=== PATIENT | female | born 1945 | race African-American/Black ===

== ENCOUNTER 2016-11-08 15:17 | Inpatient (IN) | payer MEDICARE, MEDICAID ==
[~2016-11-08] VITALS: Ht 160 cm; Wt 97.5 kg
[~2016-11-08 15:17] MED LIST: ACET1TAB46 PO; ALPR0.254 PO; AMLO10TA2 PO; AMLO10TA4 PO; CLON0.1T PO; HYDR-2666 PO; HYDR-971 PO; HYDR25TA9 PO; LORA10TA3 PO; METH750T2 PO; METOPROLOL PO; OMEP40CA5 PO; OXYM15MI4 NS; POTA10TA10 PO; SUCR1ORA2 PO
--- NOTE | 2016-11-08 16:25 | RAD ---
Exam performed: One view chest. Indication: SOB, r/o acute process Date of Service: 11/08/2016 5:38 PM Comparison: 01/16/16. Single AP upright portable view chest findings: Cardiomediastinal silhouette is within limits of normal. No acute infiltrates, effusion or pneumothorax is detected. Degenerative changes seen shoulder joints. Impression: No acute cardiopulmonary process is detected.
--- NOTE | 2016-11-08 16:50 | RAD ---
Exam performed: CT scan of the head without contrast. Date of Service: 11/08/16. Comparison: None available. Clinical History: Left upper extremity weakness, history of hypertension. Technique: Helical acquisitions are obtained from the foramen magnum to the vertex without intravenous administration of contrast. Findings: The ventricles are midline without evidence of dilatation. Normal fraser-white differentiation is maintained. There is no extra axial fluid collection, intraparenchymal hemorrhage or mass lesion. The visualized portions of the orbits, paranasal sinuses and the mastoid air cells appear clear. The calvarium is intact. Impression: 1. No acute intracranial process detected. PQRS Compliance Statement: One or more of the following individualized dose reduction techniques were utilized for this examination: 1. Automated exposure control 2. Adjustment of the mA and/or kV according to patient size 3. Use of iterative reconstruction technique
[2016-11-08 17:25] LABS: BASO # 0.1 x10^3/uL (0.0-0.2); BASO % 1 % (0-3); EOS % 2 % (0-3); HEMATOCRIT 36.5 % (36.0-47.0); HEMOGLOBIN 11.9 g/dL (12.0-15.5); LYMPH % 25 % (24-48); MEAN CORPUSCULAR HEMOGLOBIN 27 pg (25-35); MEAN CORPUSCULAR HGB CONC 33 g/dL (31-37); MEAN CORPUSCULAR VOLUME 83 fL (79-100); MONO % 7 % (0-9); NEUT % 66 % (31-73); PLATELET COUNT 223 x10^3/uL (140-400); RED BLOOD COUNT 4.43 x10^6/uL (3.50-5.40); RED CELL DISTRIBUTION WIDTH 14.6 % (11.5-14.5); WHITE BLOOD COUNT 8.2 x10^3/uL (4.0-11.0)
[2016-11-08 17:26] LABS: CALCIUM 8.9 mg/dL (8.5-10.1); GFR 66.5
[2016-11-08 17:30] LABS: PROTHROMBIN TIME PATIENT 21.8 SEC (11.7-14.0)
[2016-11-08 17:32] LABS: ALBUMIN 3.7 g/dL (3.4-5.0); ALBUMIN/GLOBULIN RATIO 0.9 (1.0-1.7); TOTAL BILIRUBIN 0.5 mg/dL (0.2-1.0); TOTAL PROTEIN 7.7 g/dL (6.4-8.2)
[2016-11-08 17:35] LABS: BILIRUBIN,URINE NEGATIVE (NEG); GLUCOSE,URINE NEGATIVE (NEG); NITRITE,URINE NEGATIVE (NEG); PROTEIN,URINE NEGATIVE (NEG-TRACE); UROBILINOGEN,URINE 0.2 mg/dL (0.2 mg/dL)
[2016-11-08 18:26] LABS: RBC,URINE 0 /HPF (0-2)
[2016-11-08 18:27] LABS: SQUAMOUS EPITHELIAL CELL,UR FEW /LPF
--- NOTE | 2016-11-08 18:31 | PHYS DOC ---
Past Medical History Past Medical History: Arthritis, DVT, GERD, Hypertension Additional Past Medical Histor: seasonal allergies, pulmonary embolism Past Surgical History: Cholecystectomy, , Tubal ligation Alcohol Use: None Drug Use: None Adult General Chief Complaint Chief Complaint: WEAKNESS/GENERALIZED HPI HPI Patient is a 71 year old female who presents with left upper extremity weakness. Patient reports since last night she has felt some weakness in her left arm and hand. She also had a little numbness in left hand this morning, however this has resolved. She was having a little left upper extremity pain last night, however this is eased off today. She denies any chest discomfort. She does report slight shortness of breath. She has not taken anything for symptoms at home. No other acute complaints. Review of Systems Review of Systems Constitutional: Denies fever or chills Eyes: Denies change in visual acuity or eye pain HENT: Denies nasal congestion or sore throat Respiratory: Slight SOB. Denies cough Cardiovascular: Denies chest pain GI: Denies abdominal pain, nausea, vomiting, bloody stools or diarrhea : Denies dysuria or hematuria Musculoskeletal: Denies back pain or joint pain Integument: Denies rash or skin lesions Neurologic: LUE weakness, numbness in L hand (numbness now resolved). Denies headache.No other focal weakness or sensory changes Allergies Allergies Allergies Coded Allergies Type Severity Reaction Last Updated Verified Sulfa (Sulfonamide Antibiotics) Allergy Intermediate Rash 07/08/14 Yes cephalexin Adverse Reaction Intermediate Nausea and Vomiting 07/08/14 Yes metoclopramide Adverse Reaction Intermediate Anxiety, pt reports that it makes her restless 07/08/14 Yes promethazine Adverse Reaction Intermediate Anxiety, pt reports that phenergan cause numbness 07/08/14 Yes Physical Exam Physical Exam Constitutional: Well developed, well nourished, no acute distress, non-toxic appearance HENT: Normocephalic, atraumatic, bilateral external ears normal Eyes: PERRL, EOMI, conjunctiva normal, no discharge Neck: Normal range of motion, no stridor Cardiovascular: Heart rate normal, regular rhythm, no murmur Lungs & Thorax: Bilateral breath sounds clear to auscultation Abdomen: Bowel sounds normal, soft, non-distended, no TTP Skin: Warm, dry, no erythema, no rash Extremities: No obvious deformity, no edema. 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5% (36.0-47.0) Mean Corpuscular Volume 83fL (79-100) Mean Corpuscular Hemoglobin 27pg (25-35) Mean Corpuscular Hemoglobin Concent 33g/dL (31-37) Red Cell Distribution Width 14.6% (11.5-14.5) H Platelet Count 223x10^3/uL (140-400) Neutrophils (%) (Auto) 66% (31-73) Lymphocytes (%) (Auto) 25% (24-48) Monocytes (%) (Auto) 7% (0-9) Eosinophils (%) (Auto) 2% (0-3) Basophils (%) (Auto) 1% (0-3) Neutrophils # (Auto) 5.4x10^3uL (1.8-7.7) Lymphocytes # (Auto) 2.0x10^3/uL (1.0-4.8) Monocytes # (Auto) 0.5x10^3/uL (0.0-1.1) Eosinophils # (Auto) 0.2x10^3/uL (0.0-0.7) Basophils # (Auto) 0.1x10^3/uL (0.0-0.2) Prothrombin Time 21.8SEC (11.7-14.0) H Prothrombin Time INR 2.0 (0.8-1.1) H Sodium Level 145mmol/L (136-145) Potassium Level 4.0mmol/L (3.5-5.1) Chloride Level 107mmol/L (98-107) Carbon Dioxide Level 28mmol/L (21-32) Anion Gap 10 (6-14) Blood Urea Nitrogen 17mg/dL (7-20) Creatinine 1.0mg/dL (0.6-1.0) Estimated GFR (Cockcroft-Gault) 66.5 BUN/Creatinine Ratio 17 (6-20) Glucose Level 96mg/dL (70-99) Calcium Level 8.9mg/dL (8.5-10.1) Total Bilirubin 0.5mg/dL (0.2-1.0) Aspartate Amino Transferase (AST) 24U/L (15-37) Alanine Aminotransferase (ALT) 27U/L (14-59) Alkaline Phosphatase 98U/L (46-116) Troponin I Quantitative < 0.017ng/mL (0.000-0.055) Total Protein 7.7g/dL (6.4-8.2) Albumin 3.7g/dL (3.4-5.0) Albumin/Globulin Ratio 0.9 (1.0-1.7) L Urine Collection Type Unknown Urine Color Yellow Urine Clarity Clear Urine pH 7.0 Urine Specific [place] 1.010 Urine Protein Negativemg/dL (NEG-TRACE) Urine Glucose (UA) Negativemg/dL (NEG) Urine Ketones (Stick) Negativemg/dL (NEG) Urine Blood Negative (NEG) Urine Nitrite Negative (NEG) Urine Bilirubin Negative (NEG) Urine Urobilinogen Dipstick 0.2mg/dL (0.2 mg/dL) Urine Leukocyte Esterase Negative (NEG) Urine RBC 0/HPF (0-2) Urine WBC 1-4/HPF (0-4) Urine Squamous Epithelial Cells Few/LPF Urine Bacteria Pending Laboratory Tests 11/08/16 16:40 Laboratory Tests 11/08/16 16:40 EKG EKG EKG (my read): sinus rhythm, rate 91, normal axis, intervals wnl, no acute ST/T changes Radiology/Procedures Radiology/Procedures CT head: Impression: 1. No acute intracranial process detected. CXR: Impression: No acute cardiopulmonary process is detected. Course & Med Decision Making Course & Med Decision Making Pertinent Labs and Imaging studies reviewed. (See chart for details) Patient is 71-year-old female who presents with left upper extremity weakness. Obvious concern for possibility of stroke. Will obtain CT head, EKG, chest x-ray , labs. Patient declines need for pain meds at this time. Imaging results as above. EKG okay per my read. Labs unremarkable. Discussed results with patient. Discussed with Dr. Mcqueen, will admit under her care for further evaluation and treatment. Dragon Disclaimer Dragon Disclaimer This electronic medical record was generated, in whole or in part, using a voice recognition dictation system. Departure Departure Impression: Primary Impression: LUE weakness Disposition: ADMITTED INPATIENT Admitting Physician: Natali Mcqueen Condition: STABLE Referrals: CASSIE ZARATE DO (PCP) LIGIA ANTHONY MD Nov 08, 2016 18:31
[2016-11-08] MEDS ORDERED: ACETAMINOPHEN 325 MG TABLET. PO PRN ×2 (18:45→19:15)
[2016-11-08] MEDS ORDERED: ONDANSETRON PF 4 MG/2 ML VIAL. IV PRN ×2 (18:45→19:15)
[2016-11-08] MEDS ORDERED: MORPHINE SULFATE 2 MG/ML DISP.SYRIN. IV PRN (18:45)
--- NOTE | 2016-11-08 19:04 | PDOC1 ---
History and Physical Date of Admission Date of Admission 11/08/16 Identification/Chief Complaint Chief Complaint left arm weak Problems: Source Source: Chart review, Patient History of Present Illness History of Present Illness 71yo F, with h/o UNCONTROLled HTN, PE, 3 times of LEft leg DVT on coumadin, comes for left arm weakness. She never had stroke before. Left arm weak from yesterday with some numbness, tingling, no facial droop, speech or swallow problem. no chest pain, sob, cough. had some sinusitis symtom with clear runny nose, subjective fever and chills. + headache. Head CT neg. INR 2.0. BP>200 Past Medical History Cardiovascular: HTN GI: GERD Past Surgical History Past Surgical History: Cholecystectomy, , Tonsillectomy Family History Family History: Hypertension Social History Smoke: No ALCOHOL: none Drugs: None Current Problem List Problem List Problems Medical Problems: (1) LUE weakness Status: Acute Current Medications Current Medications Current Medications Medications (Trade) Dose Ordered Sig/Dionicio Start Time Stop Time Status Last Admin Dose Admin Acetaminophen (Tylenol) 650 mg PRN Q4HRS PRN 11/08/16 18:45 11/09/16 18:44 Morphine Sulfate 2 mg PRN Q2HR PRN 11/08/16 18:45 11/09/16 18:44 Ondansetron HCl (Zofran) 4 mg PRN Q8HRS PRN 11/08/16 18:45 11/09/16 18:44 Allergies Allergies Allergies Coded Allergies Type Severity Reaction Last Updated Verified Sulfa (Sulfonamide Antibiotics) Allergy Intermediate Rash 07/08/14 Yes cephalexin Adverse Reaction Intermediate Nausea and Vomiting 07/08/14 Yes metoclopramide Adverse Reaction Intermediate Anxiety, pt reports that it makes her restless 07/08/14 Yes promethazine Adverse Reaction Intermediate Anxiety, pt reports that phenergan cause numbness 07/08/14 Yes ROS Review of System CONSTITUTIONAL: No fever or chills EYES: No recent changes SKIN: No rash or itching CARDIOVASCULAR: No chest pain, syncope, palpitations, or edema RESPIRATORY: No SOB or cough GASTROINTESTINAL: No nausea, vomiting or abdominal pain NEUROLOGICAL: No headaches or weakness ENDOCRINE: No cold or heat intolerance GENITOURINARY: No urgency or frequency of urination MUSCULOSKELETAL: No back pain or joint pain LYMPHATICS: No enlarged lymph nodes PSYCHIATRIC: No anxiety or depression Physical Exam Physical Exam GEN.: No apparent distress. Alert and oriented. HEENT: Head is normocephalic, atraumatic NECK: Supple. LUNGS: Clear to auscultation. HEART: RRR, S1, S2 present. Peripheral pulses intact ABDOMEN: Soft, nontender. Positive bowel sounds. EXTREMITIES: Without any cyanosis. NEUROLOGIC: Normal speech, normal tone. sensation symmetric. left arm strength slightly weaker, 4/5. PSYCHIATRIC: Normal affect, normal mood. SKIN: No ulcerations Vitals Vitals Vital Signs Date Time Temp Pulse Resp B/P Pulse Ox O2 Delivery O2 Flow Rate FiO2 11/08/16 18:24 74 172/74 99 Room Air 11/08/16 15:20 98.0 18 98.0 Labs Labs Laboratory Tests Test 11/08/16 16:40 11/08/16 17:25 White Blood Count 8.2x10^3/uL (4.0-11.0) Red Blood Count 4.43x10^6/uL (3.50-5.40) Hemoglobin 11.9g/dL (12.0-15.5) Hematocrit 36.5% (36.0-47.0) Mean Corpuscular Volume 83fL (79-100) Mean Corpuscular Hemoglobin 27pg (25-35) Mean Corpuscular Hemoglobin Concent 33g/dL (31-37) Red Cell Distribution Width 14.6% (11.5-14.5) Platelet Count 223x10^3/uL (140-400) Neutrophils (%) (Auto) 66% (31-73) Lymphocytes (%) (Auto) 25% (24-48) Monocytes (%) (Auto) 7% (0-9) Eosinophils (%) (Auto) 2% (0-3) Basophils (%) (Auto) 1% (0-3) Neutrophils # (Auto) 5.4x10^3uL (1.8-7.7) Lymphocytes # (Auto) 2.0x10^3/uL (1.0-4.8) Monocytes # (Auto) 0.5x10^3/uL (0.0-1.1) Eosinophils # (Auto) 0.2x10^3/uL (0.0-0.7) Basophils # (Auto) 0.1x10^3/uL (0.0-0.2) Prothrombin Time 21.8SEC (11.7-14.0) Prothromb Time International Ratio 2.0 (0.8-1.1) Sodium Level 145mmol/L (136-145) Potassium Level 4.0mmol/L (3.5-5.1) Chloride Level 107mmol/L (98-107) Carbon Dioxide Level 28mmol/L (21-32) Anion Gap 10 (6-14) Blood Urea Nitrogen 17mg/dL (7-20) Creatinine 1.0mg/dL (0.6-1.0) Estimated GFR (Cockcroft-Gault) 66.5 BUN/Creatinine Ratio 17 (6-20) Glucose Level 96mg/dL (70-99) Calcium Level 8.9mg/dL (8.5-10.1) Total Bilirubin 0.5mg/dL (0.2-1.0) Aspartate Amino Transf (AST/SGOT) 24U/L (15-37) Alanine Aminotransferase (ALT/SGPT) 27U/L (14-59) Alkaline Phosphatase 98U/L (46-116) Troponin I Quantitative < 0.017ng/mL (0.000-0.055) Total Protein 7.7g/dL (6.4-8.2) Albumin 3.7g/dL (3.4-5.0) Albumin/Globulin Ratio 0.9 (1.0-1.7) Urine Collection Type Unknown Urine Color Yellow Urine Clarity Clear Urine pH 7.0 Urine Specific [place] 1.010 Urine Protein Negativemg/dL (NEG-TRACE) Urine Glucose (UA) Negativemg/dL (NEG) Urine Ketones (Stick) Negativemg/dL (NEG) Urine Blood Negative (NEG) Urine Nitrite Negative (NEG) Urine Bilirubin Negative (NEG) Urine Urobilinogen Dipstick 0.2mg/dL (0.2 mg/dL) Urine Leukocyte Esterase Negative (NEG) Urine RBC 0/HPF (0-2) Urine WBC 1-4/HPF (0-4) Urine Squamous Epithelial Cells Few/LPF Laboratory Tests Test 11/08/16 16:40 11/08/16 17:25 White Blood Count 8.2x10^3/uL (4.0-11.0) Red Blood Count 4.43x10^6/uL (3.50-5.40) Hemoglobin 11.9g/dL (12.0-15.5) Hematocrit 36.5% (36.0-47.0) Mean Corpuscular Volume 83fL (79-100) Mean Corpuscular Hemoglobin 27pg (25-35) Mean Corpuscular Hemoglobin Concent 33g/dL (31-37) Red Cell Distribution Width 14.6% (11.5-14.5) Platelet Count 223x10^3/uL (140-400) Neutrophils (%) (Auto) 66% (31-73) Lymphocytes (%) (Auto) 25% (24-48) Monocytes (%) (Auto) 7% (0-9) Eosinophils (%) (Auto) 2% (0-3) Basophils (%) (Auto) 1% (0-3) Neutrophils # (Auto) 5.4x10^3uL (1.8-7.7) Lymphocytes # (Auto) 2.0x10^3/uL (1.0-4.8) Monocytes # (Auto) 0.5x10^3/uL (0.0-1.1) Eosinophils # (Auto) 0.2x10^3/uL (0.0-0.7) Basophils # (Auto) 0.1x10^3/uL (0.0-0.2) Prothrombin Time 21.8SEC (11.7-14.0) Prothromb Time International Ratio 2.0 (0.8-1.1) Sodium Level 145mmol/L (136-145) Potassium Level 4.0mmol/L (3.5-5.1) Chloride Level 107mmol/L (98-107) Carbon Dioxide Level 28mmol/L (21-32) Anion Gap 10 (6-14) Blood Urea Nitrogen 17mg/dL (7-20) Creatinine 1.0mg/dL (0.6-1.0) Estimated GFR (Cockcroft-Gault) 66.5 BUN/Creatinine Ratio 17 (6-20) Glucose Level 96mg/dL (70-99) Calcium Level 8.9mg/dL (8.5-10.1) Total Bilirubin 0.5mg/dL (0.2-1.0) Aspartate Amino Transf (AST/SGOT) 24U/L (15-37) Alanine Aminotransferase (ALT/SGPT) 27U/L (14-59) Alkaline Phosphatase 98U/L (46-116) Troponin I Quantitative < 0.017ng/mL (0.000-0.055) Total Protein 7.7g/dL (6.4-8.2) Albumin 3.7g/dL (3.4-5.0) Albumin/Globulin Ratio 0.9 (1.0-1.7) Urine Collection Type Unknown Urine Color Yellow Urine Clarity Clear Urine pH 7.0 Urine Specific [place] 1.010 Urine Protein Negativemg/dL (NEG-TRACE) Urine Glucose (UA) Negativemg/dL (NEG) Urine Ketones (Stick) Negativemg/dL (NEG) Urine Blood Negative (NEG) Urine Nitrite Negative (NEG) Urine Bilirubin Negative (NEG) Urine Urobilinogen Dipstick 0.2mg/dL (0.2 mg/dL) Urine Leukocyte Esterase Negative (NEG) Urine RBC 0/HPF (0-2) Urine WBC 1-4/HPF (0-4) Urine Squamous Epithelial Cells Few/LPF VTE Prophylaxis Ordered VTE Prophylaxis Devices: Yes VTE Pharmacological Prophylaxi: No Assessment/Plan Assessment/Plan 1. left arm weakness, numbness, need to rule out cva 2. h/o multiple left leg DVT, PE on coumadin 3. Uncontrolled HTN 4. gerd 5. OA plan: 1. neuro consult 2. MRI BRAIN TMR 3. CHECK lipid panel 4. need verify home meds, should be on coumadin, inr daily 5. BP <220/110 is ok for today, otherwise hydralazine prn cont HTN meds tmr ptot NEENA BOJORQUEZ MD Nov 08, 2016 19:04
[2016-11-08] MEDS ORDERED: hydrALAZINE 20 MG/ML VIAL. IVP PRN (19:15)
[2016-11-08 19:30] VITALS: BP 186/79
[2016-11-08 21:28] LABS: BACTERIA,URINE 0 /HPF (0-FEW)
[2016-11-08] MEDS: HYDROCODONE/APAP 5/325MG TABLET. PO PRN (21:58)
[2016-11-08] MEDS: METHOCARBAMOL 750 MG TABLET PO SCH (21:58)
[2016-11-08 22:34] VITALS: BP 177/68
[2016-11-09] VITALS (8 sets, daily range): BP systolic 117–184; BP diastolic 53–73
[2016-11-09 06:41] LABS: CALCIUM 8.9 mg/dL (8.5-10.1); CREATININE 0.8 mg/dL (0.6-1.0); GFR 86.1; POTASSIUM 3.8 mmol/L (3.5-5.1)
--- NOTE | 2016-11-09 06:43 | ACF ---
Admission Forms Criteria TELEMETRY CARE Telemetry Admission Guidelines (Place 'X' for any and all applicable criteria): Admission to telemetry [A] may be indicated for ANY ONE of the following(1)(2)(3 )(4)(5): [ ]I. Cardiac disease, including ANY ONE of the following (9)(10)(11)(12)(13 ): [ ]a) Postacute OH [ ]b) Low-risk patients with ST-segment elevation OH who have undergone successful percutaneous coronary intervention [ ]c) Unstable angina [ ]d) Suspected OH (until it is ruled out) [ ]e) Post cardiac surgery (first 48 to 72 hours unless complications occur) [ ]f) Acute arrhythmias (including significant tachycardia or bradycardia) [B] [ ]g) Firing of an implantable cardioverter defibrillator [C] [ ]h) Suspected pacemaker or implantable cardioverter defibrillator malfunction (10) [ ]i) New administration or adjustment of an antiarrhythmic drug [D ] [ ]j) Child admitted for acute congestive heart failure [ ]j) Long QT syndrome [ ]k) Advanced heart block (eg, second-degree Mobitz type II, third- degree heart block) [ ]l) Acute myocarditis or pericarditis [ ]m) Short-term (ambulatory or inpatient) monitoring after a cardiac procedure as indicated by ANY ONE of the following [E]: [ ]i) Electrophysiologic studies [ ]ii) Percutaneous coronary intervention with stent placement [ ]iii) Pacemaker placement with cardiac conduction defect [ ]iv) Implantable cardiac defibrillator placement [ ]II. Drug overdose or poisoning with substance that causes arrhythmias or QT prolongation (eg, phenothiazines, sympathomimetic agents, cyclic antidepressants, digitalis, antiarrhythmic drugs)(15) [ ]III. Short-term (ambulatory or inpatient) monitoring after therapeutic or diagnostic procedure requiring conscious sedation or anesthesia (eg, endoscopy, elective cardioversion) [X]IV. Acute cerebrovascular event[F](18) [ ]V. Massive blood transfusion (eg, at least 10 units of packed red blood cells in 24 hours) [ ]. Variceal bleeding after endoscopy, sclerotherapy, or IV vasopressin [ ]VII. Uncorrected electrolyte abnormalities associated with an increased risk of dangerous arrhythmia [G]; examples include [ ]a) Hyperkalemia with attributable ECG changes [ ]b) Potassium greater than 6.5 mmol/L (mEq/L) in a patient without history of chronic renal disease [ ]c) Prolonged QT attributed to hypokalemia, hypomagnesemia, or hypocalcemia [ ]VIII.Unexplained syncope or other neurologic event suspected of being due to arrhythmia due to a finding that increases risk; examples include(19)(20)(21): [ ]a) High-risk ECG findings (eg, bifascicular block, bradycardia, abnormal QT interval, ventricular pre- excitation) [ ]b) History of previous syncope due to arrhythmia [ ]c) Abnormal ventricular function (eg, reduced ejection fraction ) [ ]d) Exertional or supine syncope [ ]e) Concerning syncope characteristics (eg, sudden loss of consciousness without prodrome) [ ]f) Family history of sudden [ ]g) Use of arrhythmogenic medication [ ]h) Suspected cardiac ischemia [ ]i) Known channelopathy (eg, long QT syndrome, Brugada syndrome, or catecholaminergic paroxysmal ventricular tachycardia) [ ]j) Known structural heart disease (eg, hypertrophic cardiomyopathy , severe valvular disease) [ ]k) Palpitations preceding syncope The original [employer] content created by [employer] has been revised. The portions of the content which have been revised are identified through the use of italic text or in bold, and [facility] has neither reviewed nor approved the modified material. All other unmodified content is copyright [employer]. Please see references footnoted in the original [employer] edition 2015 Admission Criteria Met?: Yes CURTIS BULL Nov 09, 2016 06:42
[2016-11-09 06:44] LABS: BASO % 1 % (0-3); EOS % 2 % (0-3); HEMATOCRIT 34.7 % (36.0-47.0); LYMPH # 2.8 x10^3/uL (1.0-4.8); LYMPH % 34 % (24-48); MEAN CORPUSCULAR HEMOGLOBIN 27 pg (25-35); MEAN CORPUSCULAR HGB CONC 32 g/dL (31-37); MEAN CORPUSCULAR VOLUME 84 fL (79-100); MONO % 7 % (0-9); NEUT % 56 % (31-73); PLATELET COUNT 217 x10^3/uL (140-400); RED BLOOD COUNT 4.11 x10^6/uL (3.50-5.40); RED CELL DISTRIBUTION WIDTH 14.8 % (11.5-14.5); WHITE BLOOD COUNT 8.2 x10^3/uL (4.0-11.0)
[2016-11-09 07:15] LABS: CHOLESTEROL/HDL RATIO 2.8
[2016-11-09] MEDS: CETIRIZINE HCL 10 MG TABLET PO SCH (08:32)
[2016-11-09] MEDS: METHOCARBAMOL 750 MG TABLET PO SCH ×2 (08:32→21:15)
[2016-11-09] MEDS: AMLODIPINE BESYLATE 10 MG TABLET PO SCH (08:32)
[2016-11-09] MEDS: PANTOPRAZOLE 40 MG TABLET. PO SCH (08:32)
[2016-11-09] MEDS: HYDROCODONE/APAP 5/325MG TABLET. PO PRN ×2 (10:32→21:15)
--- NOTE | 2016-11-09 12:47 | EKG ---
[facility] [address] [place] [address] Test Date: 2016-11-08 Test Time: 15:33:13 Pat Name: BALDEMAR LANE Department: Room: Gender: F [employer]: : 1945 Requested By: LIGIA ANTHONY Order Number: [id number] Reading MD: Measurements Intervals [place] Rate: 91 P: 24 [place]: 152 QRS: 20 QRSD: 70 T: 58 QT: 352 QTc: 435 Interpretive Statements SINUS RHYTHM QRS(T) CONTOUR ABNORMALITY CONSIDER ANTEROLATERAL MYOCARDIAL DAMAGE RI6.01 Unconfirmed report No previous ECG available for comparison
[2016-11-09 12:54] LABS: INR 1.8 (0.8-1.1); PROTHROMBIN TIME PATIENT 19.6 SEC (11.7-14.0)
--- NOTE | 2016-11-09 13:24 | PDOC2 ---
NEUROLOGY CONSULT Date of Admission Date of Admission DATE: 11/09/16 TIME: 13:17 Reason for Consult Reason for Consult: Stroke symptoms Referring Physician Referring Physician: Dr. Mcqueen Primary physician is at [facility] Source Source: Chart review, Patient History of Present Illness History of Present Illness The patient is a 71-year-old right-handed female who noticed some headache and left arm pain and weakness starting 2 nights ago. She went to the emergency department yesterday and was found to be hypertensive. There is no prior history of stroke, seizure, or head injury. Her blood pressure is usually under good control. She feels fine now. There was never any dysarthria, dysphagia, diplopia, numbness or weakness in the other extremities or face. Past Medical History Cardiovascular: HTN Pulmonary: Pulmonary embolus GI: Constipation, GERD, Other (esophagitis) Heme/Onc: Anemia NOS Musculoskeletal: Osteoarthritis Past Surgical History Past Surgical History: Cholecystectomy, Tonsillectomy Family History Family History: Cancer, Other (sickle cell) Social History Social History Single, no tobacco or alcohol Current Medications Current Medications Current Medications Ondansetron HCl (Zofran) 4 mg PRN Q8HRS PRN IV NAUSEA/VOMITING; Start 11/08/16 at 18:45; Stop 11/08/16 at 19:16; Status DC Morphine Sulfate 2 mg PRN Q2HR PRN IV PAIN; Start 11/08/16 at 18:45; Stop 11/09 at 18:44 Acetaminophen (Tylenol) 650 mg PRN Q4HRS PRN PO FEVER; Start 11/08/16 at 18:45 ; Stop 11/08/16 at 19:16; Status DC Amlodipine Besylate (Norvasc) 10 mg DAILY PO Last administered on 11/09/16 08: 32; Start 11/09/16 at 09:00 Acetaminophen/ Hydrocodone Bitart (Lortab 5/325) 1 tab PRN Q6HRS PRN PO PAIN Last administered on 11/09/16 10:32; Start 11/08/16 at 19:15 Methocarbamol (Robaxin) 750 mg BID PO Last administered on 11/09/16 08:32; Start 11/08/16 at 21:00 Cetirizine HCl (Zyrtec) 10 mg DAILY PO Last administered on 11/09/16 08:32; Start 11/09/16 at 09:00 Pantoprazole Sodium (Protonix) 40 mg DAILYAC PO Last administered on 11/09/16t 08:32; Start 11/09/16 at 07:30 Hydralazine HCl (Apresoline) 10 mg PRN Q4HRS PRN IVP ELEVATED BP, SEE COMMENTS ; Start 11/08/16 at 19:15 Acetaminophen (Tylenol) 650 mg PRN Q6HRS PRN PO MILD PAIN / TEMP; Start at 19:15 Ondansetron HCl (Zofran) 4 mg PRN Q6HRS PRN IV NAUSEA/VOMITING; Start 11/08/16 at 19:15 Active Scripts Active Sassafras 5-325 Tablet (Acetaminophen/Hydrocodone Bitart) 1 Each Tablet 1 Tab PO PRN Q6HRS PRN Reported Norvasc (Amlodipine Besylate) 10 Mg Tablet 10 Mg PO DAILY Methocarbamol 750 Mg Tablet 750 Mg PO BID Loratadine 10 Mg Tablet 10 Mg PO DAILY [metoprolol 50] 75 Mg PO BID Hydrocodone-Apap 5-325 (Hydrocodone Bit/Acetaminophen) 1 Each Tablet 1 Each PO PRN Q6HRS PRN Omeprazole 40 Mg Capsule.dr 40 Mg PO DAILY Allergies Allergies: Coded Allergies: Sulfa (Sulfonamide Antibiotics) (Verified Allergy, Intermediate, Rash, 07/08/14) cephalexin (Verified Adverse Reaction, Intermediate, Nausea and Vomiting, 07/08/14) metoclopramide (Verified Adverse Reaction, Intermediate, Anxiety, pt reports that it makes her restless, 07/08/14) promethazine (Verified Adverse Reaction, Intermediate, Anxiety, pt reports that phenergan cause numbness, 07/08/14) ROS Review of System Patient denies fevers, chills, weight loss, dyspnea, angina, abdominal pain, change in bowels, or dysuria. 14 point review of systems is negative. Physical Exam Physical Examination PHYSICAL EXAMINATION: Vital signs: see above. General appearance is normal and in no acute distress. HEENT: Normocephalic and nontraumatic. Eyes, nose, ears, and throat are unremarkable. Neck is supple. No lymphadenopathy. No bruits are heard over the carotid artery. No crepitus. NEUROLOGICAL EXAMINATION: Mental Status Examination: Alert. Oriented to time, place, and person. Answers questions and follows commends. Pupils are equal round and reactive to light and accommodation. Funduscopic exam: No papilledema. Extraocular movements are intact. Visual field exam shows no defect on the direct confrontation. No motor or sensory deficits on the facial exam. Uvula in the midline and the soft palate elevated symmetrically. No deviation of the tongue to any direction. Gross hearing is normal. Shoulder shrug normal. Muscle tone is normal. Muscle strength is 5. Deep tendon reflexes are 2+ all around. Plantar reflex is with flexion response bilaterally. [id number] test performance is accurate. Tandem walk test is accurate. Alternative movements are accurate. Romberg test is negative. Gait is normal. Sensory exam shows no deficits. No cerebellar signs are elicited. Vitals VITALS Vital Signs Date Time Temp Pulse Resp B/P Pulse Ox O2 Delivery O2 Flow Rate FiO2 11/09/16 11:00 97.7 76 18 155/67 99 Room Air 97.7 Labs Labs Laboratory Tests Test 11/08/16 16:40 11/08/16 17:25 11/09/16 00:45 11/09/16 05:55 White Blood Count 8.2x10^3/uL (4.0-11.0) 8.2x10^3/uL (4.0-11.0) Red Blood Count 4.43x10^6/uL (3.50-5.40) 4.11x10^6/uL (3.50-5.40) Hemoglobin 11.9g/dL (12.0-15.5) 11.0g/dL (12.0-15.5) Hematocrit 36.5% (36.0-47.0) 34.7% (36.0-47.0) Mean Corpuscular Volume 83fL (79-100) 84fL (79-100) Mean Corpuscular Hemoglobin 27pg (25-35) 27pg (25-35) Mean Corpuscular Hemoglobin Concent 33g/dL (31-37) 32g/dL (31-37) Red Cell Distribution Width 14.6% (11.5-14.5) 14.8% (11.5-14.5) Platelet Count 223x10^3/uL (140-400) 217x10^3/uL (140-400) Neutrophils (%) (Auto) 66% (31-73) 56% (31-73) Lymphocytes (%) (Auto) 25% (24-48) 34% (24-48) Monocytes (%) (Auto) 7% (0-9) 7% (0-9) Eosinophils (%) (Auto) 2% (0-3) 2% (0-3) Basophils (%) (Auto) 1% (0-3) 1% (0-3) Neutrophils # (Auto) 5.4x10^3uL (1.8-7.7) 4.6x10^3uL (1.8-7.7) Lymphocytes # (Auto) 2.0x10^3/uL (1.0-4.8) 2.8x10^3/uL (1.0-4.8) Monocytes # (Auto) 0.5x10^3/uL (0.0-1.1) 0.5x10^3/uL (0.0-1.1) Eosinophils # (Auto) 0.2x10^3/uL (0.0-0.7) 0.2x10^3/uL (0.0-0.7) Basophils # (Auto) 0.1x10^3/uL (0.0-0.2) 0.0x10^3/uL (0.0-0.2) Prothrombin Time 21.8SEC (11.7-14.0) Prothromb Time International Ratio 2.0 (0.8-1.1) Sodium Level 145mmol/L (136-145) 145mmol/L (136-145) Potassium Level 4.0mmol/L (3.5-5.1) 3.8mmol/L (3.5-5.1) Chloride Level 107mmol/L (98-107) 107mmol/L (98-107) Carbon Dioxide Level 28mmol/L (21-32) 30mmol/L (21-32) Anion Gap 10 (6-14) 8 (6-14) Blood Urea Nitrogen 17mg/dL (7-20) 15mg/dL (7-20) Creatinine 1.0mg/dL (0.6-1.0) 0.8mg/dL (0.6-1.0) Estimated GFR (Cockcroft-Gault) 66.5 86.1 BUN/Creatinine Ratio 17 (6-20) Glucose Level 96mg/dL (70-99) 95mg/dL (70-99) Calcium Level 8.9mg/dL (8.5-10.1) 8.9mg/dL (8.5-10.1) Total Bilirubin 0.5mg/dL (0.2-1.0) Aspartate Amino Transf (AST/SGOT) 24U/L (15-37) Alanine Aminotransferase (ALT/SGPT) 27U/L (14-59) Alkaline Phosphatase 98U/L (46-116) Troponin I Quantitative < 0.017ng/mL (0.000-0.055) < 0.017ng/mL (0.000-0.055) Total Protein 7.7g/dL (6.4-8.2) Albumin 3.7g/dL (3.4-5.0) Albumin/Globulin Ratio 0.9 (1.0-1.7) Urine Collection Type Unknown Urine Color Yellow Urine Clarity Clear Urine pH 7.0 Urine Specific [place] 1.010 Urine Protein Negativemg/dL (NEG-TRACE) Urine Glucose (UA) Negativemg/dL (NEG) Urine Ketones (Stick) Negativemg/dL (NEG) Urine Blood Negative (NEG) Urine Nitrite Negative (NEG) Urine Bilirubin Negative (NEG) Urine Urobilinogen Dipstick 0.2mg/dL (0.2 mg/dL) Urine Leukocyte Esterase Negative (NEG) Urine RBC 0/HPF (0-2) Urine WBC 1-4/HPF (0-4) Urine Squamous Epithelial Cells Few/LPF Urine Bacteria 0/HPF (0-FEW) Test 11/09/16 06:45 Troponin I Quantitative < 0.017ng/mL (0.000-0.055) Triglycerides Level 68mg/dL (0-150) Cholesterol Level 190mg/dL (0-200) LDL Cholesterol, Calculated 109mg/dL (0-100) VLDL Cholesterol, Calculated 14mg/dL (0-40) HDL Cholesterol 67mg/dL (40-60) Cholesterol/HDL Ratio 2.8 Laboratory Tests Test 11/08/16 16:40 11/08/16 17:25 11/09/16 00:45 11/09/16 05:55 White Blood Count 8.2x10^3/uL (4.0-11.0) 8.2x10^3/uL (4.0-11.0) Red Blood Count 4.43x10^6/uL (3.50-5.40) 4.11x10^6/uL (3.50-5.40) Hemoglobin 11.9g/dL (12.0-15.5) 11.0g/dL (12.0-15.5) Hematocrit 36.5% (36.0-47.0) 34.7% (36.0-47.0) Mean Corpuscular Volume 83fL (79-100) 84fL (79-100) Mean Corpuscular Hemoglobin 27pg (25-35) 27pg (25-35) Mean Corpuscular Hemoglobin Concent 33g/dL (31-37) 32g/dL (31-37) Red Cell Distribution Width 14.6% (11.5-14.5) 14.8% (11.5-14.5) Platelet Count 223x10^3/uL (140-400) 217x10^3/uL (140-400) Neutrophils (%) (Auto) 66% (31-73) 56% (31-73) Lymphocytes (%) (Auto) 25% (24-48) 34% (24-48) Monocytes (%) (Auto) 7% (0-9) 7% (0-9) Eosinophils (%) (Auto) 2% (0-3) 2% (0-3) Basophils (%) (Auto) 1% (0-3) 1% (0-3) Neutrophils # (Auto) 5.4x10^3uL (1.8-7.7) 4.6x10^3uL (1.8-7.7) Lymphocytes # (Auto) 2.0x10^3/uL (1.0-4.8) 2.8x10^3/uL (1.0-4.8) Monocytes # (Auto) 0.5x10^3/uL (0.0-1.1) 0.5x10^3/uL (0.0-1.1) Eosinophils # (Auto) 0.2x10^3/uL (0.0-0.7) 0.2x10^3/uL (0.0-0.7) Basophils # (Auto) 0.1x10^3/uL (0.0-0.2) 0.0x10^3/uL (0.0-0.2) Prothrombin Time 21.8SEC (11.7-14.0) Prothromb Time International Ratio 2.0 (0.8-1.1) Sodium Level 145mmol/L (136-145) 145mmol/L (136-145) Potassium Level 4.0mmol/L (3.5-5.1) 3.8mmol/L (3.5-5.1) Chloride Level 107mmol/L (98-107) 107mmol/L (98-107) Carbon Dioxide Level 28mmol/L (21-32) 30mmol/L (21-32) Anion Gap 10 (6-14) 8 (6-14) Blood Urea Nitrogen 17mg/dL (7-20) 15mg/dL (7-20) Creatinine 1.0mg/dL (0.6-1.0) 0.8mg/dL (0.6-1.0) Estimated GFR (Cockcroft-Gault) 66.5 86.1 BUN/Creatinine Ratio 17 (6-20) Glucose Level 96mg/dL (70-99) 95mg/dL (70-99) Calcium Level 8.9mg/dL (8.5-10.1) 8.9mg/dL (8.5-10.1) Total Bilirubin 0.5mg/dL (0.2-1.0) Aspartate Amino Transf (AST/SGOT) 24U/L (15-37) Alanine Aminotransferase (ALT/SGPT) 27U/L (14-59) Alkaline Phosphatase 98U/L (46-116) Troponin I Quantitative < 0.017ng/mL (0.000-0.055) < 0.017ng/mL (0.000-0.055) Total Protein 7.7g/dL (6.4-8.2) Albumin 3.7g/dL (3.4-5.0) Albumin/Globulin Ratio 0.9 (1.0-1.7) Urine Collection Type Unknown Urine Color Yellow Urine Clarity Clear Urine pH 7.0 Urine Specific [place] 1.010 Urine Protein Negativemg/dL (NEG-TRACE) Urine Glucose (UA) Negativemg/dL (NEG) Urine Ketones (Stick) Negativemg/dL (NEG) Urine Blood Negative (NEG) Urine Nitrite Negative (NEG) Urine Bilirubin Negative (NEG) Urine Urobilinogen Dipstick 0.2mg/dL (0.2 mg/dL) Urine Leukocyte Esterase Negative (NEG) Urine RBC 0/HPF (0-2) Urine WBC 1-4/HPF (0-4) Urine Squamous Epithelial Cells Few/LPF Urine Bacteria 0/HPF (0-FEW) Test 11/09/16 06:45 Troponin I Quantitative < 0.017ng/mL (0.000-0.055) Triglycerides Level 68mg/dL (0-150) Cholesterol Level 190mg/dL (0-200) LDL Cholesterol, Calculated 109mg/dL (0-100) VLDL Cholesterol, Calculated 14mg/dL (0-40) HDL Cholesterol 67mg/dL (40-60) Cholesterol/HDL Ratio 2.[address] head negative Assessment/Plan Assessment/Plan Impression: Stroke-like symptoms related to hypertension, suspect hypertensive encephalopathy However, left arm pain, weakness, numbness, and isolation is atypical for any type of cerebrovascular disease so we also need to keep in mind the possibility of anginal equivalent. I find no evidence of cervical radiculopathy. Recommendations: Aspirin Cardiology consultation Agree with MRI as ordered Further stroke workup depending on the results She does not appear to need any rehabilitation modalities She was not a candidate for tissue plasminogen activator given the resolution of symptoms and because she did not present within the time window. Thank you for letting me help with the patient's care. GARRET SCHMITT MD Nov 09, 2016 13:24
--- NOTE | 2016-11-09 14:32 | PDOC ---
PROGRESS NOTES Chief Complaint Chief Complaint 1. left arm weakness, numbness, need to rule out cva 2. h/o multiple left leg DVT, PE on coumadin 3. Uncontrolled HTN 4. gerd 5. OA plan: 1. neuro consulted 2. MRI BRAIN pending, add carotid US, echo 3. CHECK lipid panel 4. need verify home meds, should be on coumadin, inr daily 5. cont HTN meds , add lisinopril ptot fu with labs dc tmr History of Present Illness History of Present Illness still left arm mild weakness Vitals Vitals Vital Signs Date Time Temp Pulse Resp B/P Pulse Ox O2 Delivery O2 Flow Rate FiO2 11/09/16 11:00 97.7 76 18 155/67 99 Room Air 97.7 Physical Exam Physical Exam left arm strength 12/03 General: Alert, Oriented X3, Cooperative Heart: Regular rate, Normal S1, Normal S2 Lungs: Clear, Wheezing Abdomen: Normal bowel sounds, Soft Extremities: No clubbing Labs LABS Laboratory Tests Test 11/08/16 16:40 11/08/16 17:25 11/09/16 00:45 11/09/16 05:55 White Blood Count 8.2x10^3/uL (4.0-11.0) 8.2x10^3/uL (4.0-11.0) Red Blood Count 4.43x10^6/uL (3.50-5.40) 4.11x10^6/uL (3.50-5.40) Hemoglobin 11.9g/dL (12.0-15.5) 11.0g/dL (12.0-15.5) Hematocrit 36.5% (36.0-47.0) 34.7% (36.0-47.0) Mean Corpuscular Volume 83fL (79-100) 84fL (79-100) Mean Corpuscular Hemoglobin 27pg (25-35) 27pg (25-35) Mean Corpuscular Hemoglobin Concent 33g/dL (31-37) 32g/dL (31-37) Red Cell Distribution Width 14.6% (11.5-14.5) 14.8% (11.5-14.5) Platelet Count 223x10^3/uL (140-400) 217x10^3/uL (140-400) Neutrophils (%) (Auto) 66% (31-73) 56% (31-73) Lymphocytes (%) (Auto) 25% (24-48) 34% (24-48) Monocytes (%) (Auto) 7% (0-9) 7% (0-9) Eosinophils (%) (Auto) 2% (0-3) 2% (0-3) Basophils (%) (Auto) 1% (0-3) 1% (0-3) Neutrophils # (Auto) 5.4x10^3uL (1.8-7.7) 4.6x10^3uL (1.8-7.7) Lymphocytes # (Auto) 2.0x10^3/uL (1.0-4.8) 2.8x10^3/uL (1.0-4.8) Monocytes # (Auto) 0.5x10^3/uL (0.0-1.1) 0.5x10^3/uL (0.0-1.1) Eosinophils # (Auto) 0.2x10^3/uL (0.0-0.7) 0.2x10^3/uL (0.0-0.7) Basophils # (Auto) 0.1x10^3/uL (0.0-0.2) 0.0x10^3/uL (0.0-0.2) Prothrombin Time 21.8SEC (11.7-14.0) Prothromb Time International Ratio 2.0 (0.8-1.1) Sodium Level 145mmol/L (136-145) 145mmol/L (136-145) Potassium Level 4.0mmol/L (3.5-5.1) 3.8mmol/L (3.5-5.1) Chloride Level 107mmol/L (98-107) 107mmol/L (98-107) Carbon Dioxide Level 28mmol/L (21-32) 30mmol/L (21-32) Anion Gap 10 (6-14) 8 (6-14) Blood Urea Nitrogen 17mg/dL (7-20) 15mg/dL (7-20) Creatinine 1.0mg/dL (0.6-1.0) 0.8mg/dL (0.6-1.0) Estimated GFR (Cockcroft-Gault) 66.5 86.1 BUN/Creatinine Ratio 17 (6-20) Glucose Level 96mg/dL (70-99) 95mg/dL (70-99) Calcium Level 8.9mg/dL (8.5-10.1) 8.9mg/dL (8.5-10.1) Total Bilirubin 0.5mg/dL (0.2-1.0) Aspartate Amino Transf (AST/SGOT) 24U/L (15-37) Alanine Aminotransferase (ALT/SGPT) 27U/L (14-59) Alkaline Phosphatase 98U/L (46-116) Troponin I Quantitative < 0.017ng/mL (0.000-0.055) < 0.017ng/mL (0.000-0.055) Total Protein 7.7g/dL (6.4-8.2) Albumin 3.7g/dL (3.4-5.0) Albumin/Globulin Ratio 0.9 (1.0-1.7) Urine Collection Type Unknown Urine Color Yellow Urine Clarity Clear Urine pH 7.0 Urine Specific Majestic 1.010 Urine Protein Negativemg/dL (NEG-TRACE) Urine Glucose (UA) Negativemg/dL (NEG) Urine Ketones (Stick) Negativemg/dL (NEG) Urine Blood Negative (NEG) Urine Nitrite Negative (NEG) Urine Bilirubin Negative (NEG) Urine Urobilinogen Dipstick 0.2mg/dL (0.2 mg/dL) Urine Leukocyte Esterase Negative (NEG) Urine RBC 0/HPF (0-2) Urine WBC 1-4/HPF (0-4) Urine Squamous Epithelial Cells Few/LPF Urine Bacteria 0/HPF (0-FEW) Test 11/09/16 06:45 11/09/16 11:55 Troponin I Quantitative < 0.017ng/mL (0.000-0.055) Triglycerides Level 68mg/dL (0-150) Cholesterol Level 190mg/dL (0-200) LDL Cholesterol, Calculated 109mg/dL (0-100) VLDL Cholesterol, Calculated 14mg/dL (0-40) HDL Cholesterol 67mg/dL (40-60) Cholesterol/HDL Ratio 2.8 Prothrombin Time 19.6SEC (11.7-14.0) Prothromb Time International Ratio 1.8 (0.8-1.1) Review of Systems Review of Systems no fever, chills, sob or chest pain Assessment and Plan Assessmemt and Plan Problems Medical Problems: (1) LUE weakness Status: Acute Problems: Comment Review of Relevant I have reviewed the following items ary (where applicable) has been applied. Labs Laboratory Tests Test 11/08/16 16:40 11/08/16 17:25 11/09/16 00:45 11/09/16 05:55 White Blood Count 8.2x10^3/uL (4.0-11.0) 8.2x10^3/uL (4.0-11.0) Red Blood Count 4.43x10^6/uL (3.50-5.40) 4.11x10^6/uL (3.50-5.40) Hemoglobin 11.9g/dL (12.0-15.5) 11.0g/dL (12.0-15.5) Hematocrit 36.5% (36.0-47.0) 34.7% (36.0-47.0) Mean Corpuscular Volume 83fL (79-100) 84fL (79-100) Mean Corpuscular Hemoglobin 27pg (25-35) 27pg (25-35) Mean Corpuscular Hemoglobin Concent 33g/dL (31-37) 32g/dL (31-37) Red Cell Distribution Width 14.6% (11.5-14.5) 14.8% (11.5-14.5) Platelet Count 223x10^3/uL (140-400) 217x10^3/uL (140-400) Neutrophils (%) (Auto) 66% (31-73) 56% (31-73) Lymphocytes (%) (Auto) 25% (24-48) 34% (24-48) Monocytes (%) (Auto) 7% (0-9) 7% (0-9) Eosinophils (%) (Auto) 2% (0-3) 2% (0-3) Basophils (%) (Auto) 1% (0-3) 1% (0-3) Neutrophils # (Auto) 5.4x10^3uL (1.8-7.7) 4.6x10^3uL (1.8-7.7) Lymphocytes # (Auto) 2.0x10^3/uL (1.0-4.8) 2.8x10^3/uL (1.0-4.8) Monocytes # (Auto) 0.5x10^3/uL (0.0-1.1) 0.5x10^3/uL (0.0-1.1) Eosinophils # (Auto) 0.2x10^3/uL (0.0-0.7) 0.2x10^3/uL (0.0-0.7) Basophils # (Auto) 0.1x10^3/uL (0.0-0.2) 0.0x10^3/uL (0.0-0.2) Prothrombin Time 21.8SEC (11.7-14.0) Prothromb Time International Ratio 2.0 (0.8-1.1) Sodium Level 145mmol/L (136-145) 145mmol/L (136-145) Potassium Level 4.0mmol/L (3.5-5.1) 3.8mmol/L (3.5-5.1) Chloride Level 107mmol/L (98-107) 107mmol/L (98-107) Carbon Dioxide Level 28mmol/L (21-32) 30mmol/L (21-32) Anion Gap 10 (6-14) 8 (6-14) Blood Urea Nitrogen 17mg/dL (7-20) 15mg/dL (7-20) Creatinine 1.0mg/dL (0.6-1.0) 0.8mg/dL (0.6-1.0) Estimated GFR (Cockcroft-Gault) 66.5 86.1 BUN/Creatinine Ratio 17 (6-20) Glucose Level 96mg/dL (70-99) 95mg/dL (70-99) Calcium Level 8.9mg/dL (8.5-10.1) 8.9mg/dL (8.5-10.1) Total Bilirubin 0.5mg/dL (0.2-1.0) Aspartate Amino Transf (AST/SGOT) 24U/L (15-37) Alanine Aminotransferase (ALT/SGPT) 27U/L (14-59) Alkaline Phosphatase 98U/L (46-116) Troponin I Quantitative < 0.017ng/mL (0.000-0.055) < 0.017ng/mL (0.000-0.055) Total Protein 7.7g/dL (6.4-8.2) Albumin 3.7g/dL (3.4-5.0) Albumin/Globulin Ratio 0.9 (1.0-1.7) Urine Collection Type Unknown Urine Color Yellow Urine Clarity Clear Urine pH 7.0 Urine Specific Majestic 1.010 Urine Protein Negativemg/dL (NEG-TRACE) Urine Glucose (UA) Negativemg/dL (NEG) Urine Ketones (Stick) Negativemg/dL (NEG) Urine Blood Negative (NEG) Urine Nitrite Negative (NEG) Urine Bilirubin Negative (NEG) Urine Urobilinogen Dipstick 0.2mg/dL (0.2 mg/dL) Urine Leukocyte Esterase Negative (NEG) Urine RBC 0/HPF (0-2) Urine WBC 1-4/HPF (0-4) Urine Squamous Epithelial Cells Few/LPF Urine Bacteria 0/HPF (0-FEW) Test 11/09/16 06:45 11/09/16 11:55 Troponin I Quantitative < 0.017ng/mL (0.000-0.055) Triglycerides Level 68mg/dL (0-150) Cholesterol Level 190mg/dL (0-200) LDL Cholesterol, Calculated 109mg/dL (0-100) VLDL Cholesterol, Calculated 14mg/dL (0-40) HDL Cholesterol 67mg/dL (40-60) Cholesterol/HDL Ratio 2.8 Prothrombin Time 19.6SEC (11.7-14.0) Prothromb Time International Ratio 1.8 (0.8-1.1) Laboratory Tests Test 11/08/16 16:40 11/08/16 17:25 11/09/16 00:45 11/09/16 05:55 White Blood Count 8.2x10^3/uL (4.0-11.0) 8.2x10^3/uL (4.0-11.0) Red Blood Count 4.43x10^6/uL (3.50-5.40) 4.11x10^6/uL (3.50-5.40) Hemoglobin 11.9g/dL (12.0-15.5) 11.0g/dL (12.0-15.5) Hematocrit 36.5% (36.0-47.0) 34.7% (36.0-47.0) Mean Corpuscular Volume 83fL (79-100) 84fL (79-100) Mean Corpuscular Hemoglobin 27pg (25-35) 27pg (25-35) Mean Corpuscular Hemoglobin Concent 33g/dL (31-37) 32g/dL (31-37) Red Cell Distribution Width 14.6% (11.5-14.5) 14.8% (11.5-14.5) Platelet Count 223x10^3/uL (140-400) 217x10^3/uL (140-400) Neutrophils (%) (Auto) 66% (31-73) 56% (31-73) Lymphocytes (%) (Auto) 25% (24-48) 34% (24-48) Monocytes (%) (Auto) 7% (0-9) 7% (0-9) Eosinophils (%) (Auto) 2% (0-3) 2% (0-3) Basophils (%) (Auto) 1% (0-3) 1% (0-3) Neutrophils # (Auto) 5.4x10^3uL (1.8-7.7) 4.6x10^3uL (1.8-7.7) Lymphocytes # (Auto) 2.0x10^3/uL (1.0-4.8) 2.8x10^3/uL (1.0-4.8) Monocytes # (Auto) 0.5x10^3/uL (0.0-1.1) 0.5x10^3/uL (0.0-1.1) Eosinophils # (Auto) 0.2x10^3/uL (0.0-0.7) 0.2x10^3/uL (0.0-0.7) Basophils # (Auto) 0.1x10^3/uL (0.0-0.2) 0.0x10^3/uL (0.0-0.2) Prothrombin Time 21.8SEC (11.7-14.0) Prothromb Time International Ratio 2.0 (0.8-1.1) Sodium Level 145mmol/L (136-145) 145mmol/L (136-145) Potassium Level 4.0mmol/L (3.5-5.1) 3.8mmol/L (3.5-5.1) Chloride Level 107mmol/L (98-107) 107mmol/L (98-107) Carbon Dioxide Level 28mmol/L (21-32) 30mmol/L (21-32) Anion Gap 10 (6-14) 8 (6-14) Blood Urea Nitrogen 17mg/dL (7-20) 15mg/dL (7-20) Creatinine 1.0mg/dL (0.6-1.0) 0.8mg/dL (0.6-1.0) Estimated GFR (Cockcroft-Gault) 66.5 86.1 BUN/Creatinine Ratio 17 (6-20) Glucose Level 96mg/dL (70-99) 95mg/dL (70-99) Calcium Level 8.9mg/dL (8.5-10.1) 8.9mg/dL (8.5-10.1) Total Bilirubin 0.5mg/dL (0.2-1.0) Aspartate Amino Transf (AST/SGOT) 24U/L (15-37) Alanine Aminotransferase (ALT/SGPT) 27U/L (14-59) Alkaline Phosphatase 98U/L (46-116) Troponin I Quantitative < 0.017ng/mL (0.000-0.055) < 0.017ng/mL (0.000-0.055) Total Protein 7.7g/dL (6.4-8.2) Albumin 3.7g/dL (3.4-5.0) Albumin/Globulin Ratio 0.9 (1.0-1.7) Urine Collection Type Unknown Urine Color Yellow Urine Clarity Clear Urine pH 7.0 Urine Specific Majestic 1.010 Urine Protein Negativemg/dL (NEG-TRACE) Urine Glucose (UA) Negativemg/dL (NEG) Urine Ketones (Stick) Negativemg/dL (NEG) Urine Blood Negative (NEG) Urine Nitrite Negative (NEG) Urine Bilirubin Negative (NEG) Urine Urobilinogen Dipstick 0.2mg/dL (0.2 mg/dL) Urine Leukocyte Esterase Negative (NEG) Urine RBC 0/HPF (0-2) Urine WBC 1-4/HPF (0-4) Urine Squamous Epithelial Cells Few/LPF Urine Bacteria 0/HPF (0-FEW) Test 11/09/16 06:45 11/09/16 11:55 Troponin I Quantitative < 0.017ng/mL (0.000-0.055) Triglycerides Level 68mg/dL (0-150) Cholesterol Level 190mg/dL (0-200) LDL Cholesterol, Calculated 109mg/dL (0-100) VLDL Cholesterol, Calculated 14mg/dL (0-40) HDL Cholesterol 67mg/dL (40-60) Cholesterol/HDL Ratio 2.8 Prothrombin Time 19.6SEC (11.7-14.0) Prothromb Time International Ratio 1.8 (0.8-1.1) Medications Current Medications Ondansetron HCl (Zofran) 4 mg PRN Q8HRS PRN IV NAUSEA/VOMITING; Start 11/08/16 at 18:45; Stop 11/08/16 at 19:16; Status DC Morphine Sulfate 2 mg PRN Q2HR PRN IV PAIN; Start 11/08/16 at 18:45; Stop 11/09 at 18:44 Acetaminophen (Tylenol) 650 mg PRN Q4HRS PRN PO FEVER; Start 11/08/16 at 18:45 ; Stop 11/08/16 at 19:16; Status DC Amlodipine Besylate (Norvasc) 10 mg DAILY PO Last administered on 11/09/16 08: 32; Start 11/09/16 at 09:00 Acetaminophen/ Hydrocodone Bitart (Lortab 5/325) 1 tab PRN Q6HRS PRN PO PAIN Last administered on 11/09/16 10:32; Start 11/08/16 at 19:15 Methocarbamol (Robaxin) 750 mg BID PO Last administered on 11/09/16 08:32; Start 11/08/16 at 21:00 Cetirizine HCl (Zyrtec) 10 mg DAILY PO Last administered on 11/09/16 08:32; Start 11/09/16 at 09:00 Pantoprazole Sodium (Protonix) 40 mg DAILYAC PO Last administered on 11/09/16 08:32; Start 11/09/16 at 07:30 Hydralazine HCl (Apresoline) 10 mg PRN Q4HRS PRN IVP ELEVATED BP, SEE COMMENTS ; Start 11/08/16 at 19:15 Acetaminophen (Tylenol) 650 mg PRN Q6HRS PRN PO MILD PAIN / TEMP; Start at 19:15 Ondansetron HCl (Zofran) 4 mg PRN Q6HRS PRN IV NAUSEA/VOMITING; Start 11/08/16 at 19:15 Active Scripts Active [place] 5-325 Tablet (Acetaminophen/Hydrocodone Bitart) 1 Each Tablet 1 Tab PO PRN Q6HRS PRN Reported Norvasc (Amlodipine Besylate) 10 Mg Tablet 10 Mg PO DAILY Methocarbamol 750 Mg Tablet 750 Mg PO BID Loratadine 10 Mg Tablet 10 Mg PO DAILY [metoprolol 50] 75 Mg PO BID Hydrocodone-Apap 5-325 (Hydrocodone Bit/Acetaminophen) 1 Each Tablet 1 Each PO PRN Q6HRS PRN Omeprazole 40 Mg Capsule.dr 40 Mg PO DAILY Vitals/I & O Vital Sign - Last 24 Hours 11/08/16 11/08/16 11/08/16 11/08/16 15:20 16:24 17:24 18:24 Temp 98.0 98.0 Pulse 77 98 90 74 Resp 18 B/P 201/84 191/86 184/81 172/74 Pulse Ox 98 97 99 99 O2 Delivery Room Air Room Air Room Air Room Air 11/08/16 11/08/16 11/08/16 11/08/16 18:46 19:30 19:30 20:00 Temp 97.6 97.6 97.6 97.6 Pulse 81 72 72 Resp 20 20 B/P 172/74 186/79 186/79 Pulse Ox 100 100 O2 Delivery Room Air Room Air Room Air Room Air 11/08/16 11/08/16 11/08/16 11/09/16 21:58 22:34 22:58 03:00 Temp 97.6 98.1 97.6 98.1 Pulse 73 67 Resp 20 20 18 19 B/P 177/68 143/53 Pulse Ox 96 100 96 98 O2 Delivery Room Air Room Air Room Air Room Air 11/09/16 11/09/16 11/09/16 11/09/16 07:00 08:00 08:32 11:00 Temp 97.7 97.7 97.7 97.7 Pulse 81 81 76 Resp 18 18 B/P 153/71 153/71 155/67 Pulse Ox 97 99 O2 Delivery Room Air Room Air Room Air Intake and Output 11/08/16 11/08/16 11/09/16 15:00 23:00 07:00 Intake Total 750 ml Balance 750 ml NEENA BOJORQUEZ MD Nov 09, 2016 14:31
--- NOTE | 2016-11-09 14:45 | RAD ---
EXAM: MRI brain without contrast. HISTORY: Left upper extremity weakness. Hypertension. Cerebrovascular accident. TECHNIQUE: MRI of the brain was performed without intravenous contrast. COMPARISON: CT 11/08/2016. FINDINGS: There is no diffusion restriction. A few tiny foci of T2/FLAIR hyperintensity within the subcortical white matter indicate minimal chronic small vessel ischemic white matter change. The ventricles are normal in size and position. The orbits, paranasal sinuses, temporal bones and calvarium are unremarkable. IMPRESSION: 1. No acute intracranial findings. 2. A few scattered foci of T2/FLAIR white matter hyperintensity are nonspecific but most likely represent minimal chronic microangiopathic change.
[2016-11-09] MEDS: LISINOPRIL 20 MG TABLET PO SCH (15:01)
[2016-11-09] MEDS: WARFARIN 1 MG TABLET. PO SCH (17:35)
[2016-11-09] MEDS: WARFARIN 2.5 MG TABLET. PO SCH (17:36)
[2016-11-09] MEDS: ZOLPIDEM 5 MG TABLET. PO PRN (21:15)
[2016-11-10 03:41] VITALS: BP 121/53
[2016-11-10 04:40] LABS: BASO % 1 % (0-3); EOS % 3 % (0-3); HEMATOCRIT 33.6 % (36.0-47.0); LYMPH # 2.7 x10^3/uL (1.0-4.8); LYMPH % 38 % (24-48); MEAN CORPUSCULAR HEMOGLOBIN 27 pg (25-35); MEAN CORPUSCULAR HGB CONC 33 g/dL (31-37); MEAN CORPUSCULAR VOLUME 82 fL (79-100); MONO % 8 % (0-9); NEUT % 51 % (31-73); PLATELET COUNT 222 x10^3/uL (140-400); RED BLOOD COUNT 4.08 x10^6/uL (3.50-5.40); WHITE BLOOD COUNT 7.1 x10^3/uL (4.0-11.0)
[2016-11-10 04:47] LABS: INR 1.8 (0.8-1.1); PROTHROMBIN TIME PATIENT 20.2 SEC (11.7-14.0)
[2016-11-10 05:04] LABS: CALCIUM 8.5 mg/dL (8.5-10.1); GFR 66.5; POTASSIUM 3.9 mmol/L (3.5-5.1)
[2016-11-10 07:33] VITALS: BP 115/54
--- NOTE | 2016-11-10 08:35 | RAD ---
Carotid ultrasound, 11/09/2016: History: Stroke, left-sided weakness Duplex evaluation of the carotid arteries in the neck was performed including grayscale, color-flow and spectral Doppler analysis. There is mild intimal thickening and smooth plaquing in the common carotid arteries and at the carotid bifurcations, greater on the left. The peak systolic velocity in the right internal carotid artery is 125 cm/s. The end-diastolic velocity is 23 cm/s. The internal carotid to common carotid artery ratio is 1.1. The Doppler findings suggest luminal narrowing in the 0-50% diameter range. The right external carotid artery is unremarkable. On the left, the peak systolic velocity in the proximal internal carotid artery is 115 cm/s with an end-diastolic velocity of 17 cm/s. In the distal left internal carotid artery the peak systolic velocity is 156 cm/s with an end-diastolic velocity of 21 cm/s. The internal carotid to common carotid artery ratio at this level is approximately 1.2. The combination of Doppler findings suggest narrowing in the 0-50% diameter range. The left external carotid artery could not be definitively visualized. A blood vessel with a mild velocity elevation and turbulent flow is seen in the external carotid artery region, although this could represent an external carotid arterial branch. Antegrade flow is present in both vertebral arteries in the neck. The left vertebral artery flow is markedly dampened. IMPRESSION: 1. Mild atherosclerotic plaquing at both carotid bifurcations with narrowing of the proximal internal carotid arteries in the 0-50% diameter range bilaterally. 2. Nonvisualization of the left external carotid artery may be due to occlusion, stenosis or on a technical basis. 3. Dampened antegrade blood flow in the left vertebral artery. 3. CTA of the neck may be useful for further evaluation, if clinically indicated. Note: Stenosis calculations for CT, MRA and conventional angiography are based upon determination of the distal ICA diameter in accordance with the NASCET methodology. Stenosis calculations for Doppler studies are derived from validated velocity criteria which are known to correlate with NASCET methodology of determining stenosis.
[2016-11-10] MEDS: LISINOPRIL 20 MG TABLET PO SCH (09:02)
[2016-11-10] MEDS: PANTOPRAZOLE 40 MG TABLET. PO SCH (09:03)
[2016-11-10] MEDS: AMLODIPINE BESYLATE 10 MG TABLET PO SCH (09:03)
[2016-11-10] MEDS: METHOCARBAMOL 750 MG TABLET PO SCH ×2 (09:03→20:41)
[2016-11-10] MEDS: CETIRIZINE HCL 10 MG TABLET PO SCH (09:03)
--- NOTE | 2016-11-10 09:39 | PDOC2 ---
JOHN GUAJARDO BAND TIER 11/10/16 0939: CARDIAC CONSULT DATE OF CONSULT Date of Consult DATE: 11/10/16 TIME: 09:35 REASON FOR CONSULT Reason for Consult: left arm pain, possible anginal equivalent REFERRING PHYSICIAN Referring Physician: Dr. Mujica SOURCE Source: Chart review, Patient HISTORY OF PRESENT ILLNESS HISTORY OF PRESENT ILLNESS This is a 71 yo female who presented with complaints of left upper extremity pain and weakness. Patient reports left upper arm pain began a couple of days ago. [place] like it was a "muscle pain". Thursday morning had tingling in her left hand upon awakening. While out shopping, developed weakness of that extremity. Denies any chest pain, palpitations, dizziness, diaphoresis, or shortness of breath. Does have h/o hypertension and reports compliance with medications. Upon arrival to ED, BP significantly elevated. Neurology was consulted. Symptoms have since resolved. CVA ruled out. PAST MEDICAL HISTORY Cardiovascular: HTN Pulmonary: Other (PE) GI: GERD Heme/Onc: Anemia NOS, Other (PE/DVT on Coumadin) Hepatobiliary: No pertinent hx Psych: No pertinent hx Musculoskeletal: Osteoarthritis Rheumatologic: No pertinent hx Infectious disease: No pertinent hx ENT: No pertinent hx Renal/: No pertinent hx Endocrine: No pertinent hx Dermatology: No pertinent hx PAST SURGICAL HISTORY Past Surgical History: Cholecystectomy, Tubal Ligation, Tonsillectomy FAMILY HISTORY Family History: Cancer, Hypertension, Other (sickle cell) SOCIAL HISTORY Smoke: No ALCOHOL: none Drugs: None Lives: with Family CURRENT MEDICATIONS CURRENT MEDICATIONS Current Medications Medications (Trade) Dose Ordered Sig/Dionicio Route PRN Reason Start Time Stop Time Status Last Admin Dose Admin Lisinopril (Prinivil) 20 mg DAILY PO 11/09/16 15:15 11/10/16 09:02 Warfarin Sodium (Coumadin) 2.5 mg SuTuSa PO 11/09/16 16:00 11/09/16 17:36 Warfarin Sodium (Coumadin) 1 mg SuTuSa PO 11/09/16 16:00 11/09/16 17:35 Zolpidem Tartrate (Ambien) 5 mg PRN QHS PRN PO INSOMNIA 11/09/16 21:00 11/09/16 21:15 ALLERGIES ALLERGIES: Coded Allergies: Sulfa (Sulfonamide Antibiotics) (Verified Allergy, Intermediate, Rash, 07/08/14) cephalexin (Verified Adverse Reaction, Intermediate, Nausea and Vomiting, 07/08/14) metoclopramide (Verified Adverse Reaction, Intermediate, Anxiety, pt reports that it makes her restless, 07/08/14) promethazine (Verified Adverse Reaction, Intermediate, Anxiety, pt reports that phenergan cause numbness, 07/08/14) ROS Review of System 14 point ROS conducted with pertinent positives noted above in HPI. PHYSICAL EXAM General: Alert, Oriented X3, Cooperative, No acute distress HEENT: Mucous membr. moist/pink Lungs: Clear to auscultation, Normal air movement Heart: Regular rate, Normal S1, Normal S2, Other (2/6 systolic murmur. Tele: SR /ST ) Abdomen: Soft, No tenderness Extremities: No cyanosis, Normal pulses, Other (trace LE edema ) Skin: No breakdown, No significant lesion Neuro: Normal speech, Sensation intact Psych/Mental Status: Mental status NL, Mood NL MUSCULOSKELETAL: Osteoarthritic changes both hands VITALS VITALS Vital Signs Date Time Temp Pulse Resp B/P Pulse Ox O2 Delivery O2 Flow Rate FiO2 11/10/16 09:03 78 115/54 11/10/16 08:00 Room Air 11/10/16 07:33 97.6 18 98 97.6 LABS Lab: Laboratory Tests Test 11/09/16 11:55 11/10/16 03:26 Prothrombin Time 19.6SEC (11.7-14.0) 20.2SEC (11.7-14.0) Prothromb Time International Ratio 1.8 (0.8-1.1) 1.8 (0.8-1.1) White Blood Count 7.1x10^3/uL (4.0-11.0) Red Blood Count 4.08x10^6/uL (3.50-5.40) Hemoglobin 11.0g/dL (12.0-15.5) Hematocrit 33.6% (36.0-47.0) Mean Corpuscular Volume 82fL (79-100) Mean Corpuscular Hemoglobin 27pg (25-35) Mean Corpuscular Hemoglobin Concent 33g/dL (31-37) Red Cell Distribution Width 14.0% (11.5-14.5) Platelet Count 222x10^3/uL (140-400) Neutrophils (%) (Auto) 51% (31-73) Lymphocytes (%) (Auto) 38% (24-48) Monocytes (%) (Auto) 8% (0-9) Eosinophils (%) (Auto) 3% (0-3) Basophils (%) (Auto) 1% (0-3) Neutrophils # (Auto) 3.6x10^3uL (1.8-7.7) Lymphocytes # (Auto) 2.7x10^3/uL (1.0-4.8) Monocytes # (Auto) 0.6x10^3/uL (0.0-1.1) Eosinophils # (Auto) 0.2x10^3/uL (0.0-0.7) Basophils # (Auto) 0.0x10^3/uL (0.0-0.2) Sodium Level 145mmol/L (136-145) Potassium Level 3.9mmol/L (3.5-5.1) Chloride Level 109mmol/L (98-107) Carbon Dioxide Level 28mmol/L (21-32) Anion Gap 8 (6-14) Blood Urea Nitrogen 13mg/dL (7-20) Creatinine 1.0mg/dL (0.6-1.0) Estimated GFR (Cockcroft-Gault) 66.5 Glucose Level 96mg/dL (70-99) Calcium Level 8.5mg/dL (8.5-10.1) ASSESSMENT/PLAN ASSESSMENT/PLAN 1. Left arm pain/weakness- CVA ruled out 2. Malignant hypertension 3. Sinus tachycardia 4. Hyperlipidemia: LDL 109 5. H/o DVT/PE; on warfarin Recommendations Troponin series normal- AMI ruled out. Will obtain echo to assess LV function/presence of WMA. Suspect left arm pain is MSK in origin as it is reproducible with palpation. Weakness/tingling likely related to #2. Maintain BP control. Given mild plaquing of bilateral ICA, could consider outpatient MPI for further risk stratification. Resume BB for rate control Diet and lifestyle modification Problems: GALDINO RODRIGUEZ MD 11/10/16 1852: CARDIAC CONSULT ALLERGIES ALLERGIES: Coded Allergies: Sulfa (Sulfonamide Antibiotics) (Verified Allergy, Intermediate, Rash, 07/08/14) cephalexin (Verified Adverse Reaction, Intermediate, Nausea and Vomiting, 07/08/14) metoclopramide (Verified Adverse Reaction, Intermediate, Anxiety, pt reports that it makes her restless, 07/08/14) promethazine (Verified Adverse Reaction, Intermediate, Anxiety, pt reports that phenergan cause numbness, 07/08/14) ASSESSMENT/PLAN ASSESSMENT/PLAN Patient seen and examined. Agree with above nurse practitioner. No acute events overnight. Noted neurology recommendations. No significant cardiac abnormalities noted on examination. Given her risk factors we will rule out ischemic heart disease prior to discharge given that she does not have any radiculopathy or muscular skeletal pain by neurological examination. Plan for myocardial perfusion study prior to discharge. If normal okay to discharge tomorrow from a cardiac perspective. Problems: JOHN GUAJARDO APRN Nov 10, 2016 09:39 GALDINO RODRIGUEZ MD Nov 10, 2016 18:52
--- NOTE | 2016-11-10 11:01 | PDOC ---
PROGRESS NOTES Assessment Problems Medical Problems: (1) LUE weakness Status: Acute Stroke-like symptoms related to hypertension, suspect hypertensive encephalopathy Left arm pain, consider anginal equivalent, Cardiology consultation appreciated. I find no evidence of cervical radiculopathy. On warfarin for history of pulmonary emboli Plan Continue aspirin Home when cardiology evaluation completed Follow-up with neurology as needed Subjective No complaints, denies arm pain Objective Vital Signs Date Time Temp Pulse Resp B/P Pulse Ox O2 Delivery O2 Flow Rate FiO2 11/10/16 09:03 78 115/54 11/10/16 08:00 Room Air 11/10/16 07:33 97.6 18 98 97.6 Intake and Output 11/10/16 07:00 Intake Total 940 ml Balance 940 ml Intake Oral 940 ml # Voids 6 PHYSICAL EXAM Alert. Oriented to time, place and person. PERRL. EOMI. CN: no focal findings. Muscle tone: normal. Muscle strength: 5/5 DTR: 2+ Plantar reflex: flexor Gait: normal. Sensory exam: no abnormal findings. No cerebellar signs elicited. Review of Relevant I have reviewed the following items ary (where applicable) has been applied. Labs Laboratory Tests Test 11/08/16 16:40 11/08/16 17:25 11/09/16 00:45 11/09/16 05:55 White Blood Count 8.2x10^3/uL (4.0-11.0) 8.2x10^3/uL (4.0-11.0) Red Blood Count 4.43x10^6/uL (3.50-5.40) 4.11x10^6/uL (3.50-5.40) Hemoglobin 11.9g/dL (12.0-15.5) 11.0g/dL (12.0-15.5) Hematocrit 36.5% (36.0-47.0) 34.7% (36.0-47.0) Mean Corpuscular Volume 83fL (79-100) 84fL (79-100) Mean Corpuscular Hemoglobin 27pg (25-35) 27pg (25-35) Mean Corpuscular Hemoglobin Concent 33g/dL (31-37) 32g/dL (31-37) Red Cell Distribution Width 14.6% (11.5-14.5) 14.8% (11.5-14.5) Platelet Count 223x10^3/uL (140-400) 217x10^3/uL (140-400) Neutrophils (%) (Auto) 66% (31-73) 56% (31-73) Lymphocytes (%) (Auto) 25% (24-48) 34% (24-48) Monocytes (%) (Auto) 7% (0-9) 7% (0-9) Eosinophils (%) (Auto) 2% (0-3) 2% (0-3) Basophils (%) (Auto) 1% (0-3) 1% (0-3) Neutrophils # (Auto) 5.4x10^3uL (1.8-7.7) 4.6x10^3uL (1.8-7.7) Lymphocytes # (Auto) 2.0x10^3/uL (1.0-4.8) 2.8x10^3/uL (1.0-4.8) Monocytes # (Auto) 0.5x10^3/uL (0.0-1.1) 0.5x10^3/uL (0.0-1.1) Eosinophils # (Auto) 0.2x10^3/uL (0.0-0.7) 0.2x10^3/uL (0.0-0.7) Basophils # (Auto) 0.1x10^3/uL (0.0-0.2) 0.0x10^3/uL (0.0-0.2) Prothrombin Time 21.8SEC (11.7-14.0) Prothromb Time International Ratio 2.0 (0.8-1.1) Sodium Level 145mmol/L (136-145) 145mmol/L (136-145) Potassium Level 4.0mmol/L (3.5-5.1) 3.8mmol/L (3.5-5.1) Chloride Level 107mmol/L (98-107) 107mmol/L (98-107) Carbon Dioxide Level 28mmol/L (21-32) 30mmol/L (21-32) Anion Gap 10 (6-14) 8 (6-14) Blood Urea Nitrogen 17mg/dL (7-20) 15mg/dL (7-20) Creatinine 1.0mg/dL (0.6-1.0) 0.8mg/dL (0.6-1.0) Estimated GFR (Cockcroft-Gault) 66.5 86.1 BUN/Creatinine Ratio 17 (6-20) Glucose Level 96mg/dL (70-99) 95mg/dL (70-99) Calcium Level 8.9mg/dL (8.5-10.1) 8.9mg/dL (8.5-10.1) Total Bilirubin 0.5mg/dL (0.2-1.0) Aspartate Amino Transf (AST/SGOT) 24U/L (15-37) Alanine Aminotransferase (ALT/SGPT) 27U/L (14-59) Alkaline Phosphatase 98U/L (46-116) Troponin I Quantitative < 0.017ng/mL (0.000-0.055) < 0.017ng/mL (0.000-0.055) Total Protein 7.7g/dL (6.4-8.2) Albumin 3.7g/dL (3.4-5.0) Albumin/Globulin Ratio 0.9 (1.0-1.7) Urine Collection Type Unknown Urine Color Yellow Urine Clarity Clear Urine pH 7.0 Urine Specific [place] 1.010 Urine Protein Negativemg/dL (NEG-TRACE) Urine Glucose (UA) Negativemg/dL (NEG) Urine Ketones (Stick) Negativemg/dL (NEG) Urine Blood Negative (NEG) Urine Nitrite Negative (NEG) Urine Bilirubin Negative (NEG) Urine Urobilinogen Dipstick 0.2mg/dL (0.2 mg/dL) Urine Leukocyte Esterase Negative (NEG) Urine RBC 0/HPF (0-2) Urine WBC 1-4/HPF (0-4) Urine Squamous Epithelial Cells Few/LPF Urine Bacteria 0/HPF (0-FEW) Test 11/09/16 06:45 11/09/16 11:55 11/10/16 03:26 Troponin I Quantitative < 0.017ng/mL (0.000-0.055) Triglycerides Level 68mg/dL (0-150) Cholesterol Level 190mg/dL (0-200) LDL Cholesterol, Calculated 109mg/dL (0-100) VLDL Cholesterol, Calculated 14mg/dL (0-40) HDL Cholesterol 67mg/dL (40-60) Cholesterol/HDL Ratio 2.8 Prothrombin Time 19.6SEC (11.7-14.0) 20.2SEC (11.7-14.0) Prothromb Time International Ratio 1.8 (0.8-1.1) 1.8 (0.8-1.1) White Blood Count 7.1x10^3/uL (4.0-11.0) Red Blood Count 4.08x10^6/uL (3.50-5.40) Hemoglobin 11.0g/dL (12.0-15.5) Hematocrit 33.6% (36.0-47.0) Mean Corpuscular Volume 82fL (79-100) Mean Corpuscular Hemoglobin 27pg (25-35) Mean Corpuscular Hemoglobin Concent 33g/dL (31-37) Red Cell Distribution Width 14.0% (11.5-14.5) Platelet Count 222x10^3/uL (140-400) Neutrophils (%) (Auto) 51% (31-73) Lymphocytes (%) (Auto) 38% (24-48) Monocytes (%) (Auto) 8% (0-9) Eosinophils (%) (Auto) 3% (0-3) Basophils (%) (Auto) 1% (0-3) Neutrophils # (Auto) 3.6x10^3uL (1.8-7.7) Lymphocytes # (Auto) 2.7x10^3/uL (1.0-4.8) Monocytes # (Auto) 0.6x10^3/uL (0.0-1.1) Eosinophils # (Auto) 0.2x10^3/uL (0.0-0.7) Basophils # (Auto) 0.0x10^3/uL (0.0-0.2) Sodium Level 145mmol/L (136-145) Potassium Level 3.9mmol/L (3.5-5.1) Chloride Level 109mmol/L (98-107) Carbon Dioxide Level 28mmol/L (21-32) Anion Gap 8 (6-14) Blood Urea Nitrogen 13mg/dL (7-20) Creatinine 1.0mg/dL (0.6-1.0) Estimated GFR (Cockcroft-Gault) 66.5 Glucose Level 96mg/dL (70-99) Calcium Level 8.5mg/dL (8.5-10.1) Laboratory Tests Test 11/09/16 11:55 11/10/16 03:26 Prothrombin Time 19.6SEC (11.7-14.0) 20.2SEC (11.7-14.0) Prothromb Time International Ratio 1.8 (0.8-1.1) 1.8 (0.8-1.1) White Blood Count 7.1x10^3/uL (4.0-11.0) Red Blood Count 4.08x10^6/uL (3.50-5.40) Hemoglobin 11.0g/dL (12.0-15.5) Hematocrit 33.6% (36.0-47.0) Mean Corpuscular Volume 82fL (79-100) Mean Corpuscular Hemoglobin 27pg (25-35) Mean Corpuscular Hemoglobin Concent 33g/dL (31-37) Red Cell Distribution Width 14.0% (11.5-14.5) Platelet Count 222x10^3/uL (140-400) Neutrophils (%) (Auto) 51% (31-73) Lymphocytes (%) (Auto) 38% (24-48) Monocytes (%) (Auto) 8% (0-9) Eosinophils (%) (Auto) 3% (0-3) Basophils (%) (Auto) 1% (0-3) Neutrophils # (Auto) 3.6x10^3uL (1.8-7.7) Lymphocytes # (Auto) 2.7x10^3/uL (1.0-4.8) Monocytes # (Auto) 0.6x10^3/uL (0.0-1.1) Eosinophils # (Auto) 0.2x10^3/uL (0.0-0.7) Basophils # (Auto) 0.0x10^3/uL (0.0-0.2) Sodium Level 145mmol/L (136-145) Potassium Level 3.9mmol/L (3.5-5.1) Chloride Level 109mmol/L (98-107) Carbon Dioxide Level 28mmol/L (21-32) Anion Gap 8 (6-14) Blood Urea Nitrogen 13mg/dL (7-20) Creatinine 1.0mg/dL (0.6-1.0) Estimated GFR (Cockcroft-Gault) 66.5 Glucose Level 96mg/dL (70-99) Calcium Level 8.5mg/dL (8.5-10.1) Medications Current Medications Ondansetron HCl (Zofran) 4 mg PRN Q8HRS PRN IV NAUSEA/VOMITING; Start 11/08/16 at 18:45; Stop 11/08/16 at 19:16; Status DC Morphine Sulfate 2 mg PRN Q2HR PRN IV PAIN; Start 11/08/16 at 18:45; Stop 11/09 at 18:44; Status DC Acetaminophen (Tylenol) 650 mg PRN Q4HRS PRN PO FEVER; Start 11/08/16 at 18:45 ; Stop 11/08/16 at 19:16; Status DC Amlodipine Besylate (Norvasc) 10 mg DAILY PO Last administered on 11/10/16 09: 03; Start 11/09/16 at 09:00 Acetaminophen/ Hydrocodone Bitart (Lortab 5/325) 1 tab PRN Q6HRS PRN PO PAIN Last administered on 11/09/16 21:15; Start 11/08/16 at 19:15 Methocarbamol (Robaxin) 750 mg BID PO Last administered on 11/10/16 09:03; Start 11/08/16 at 21:00 Cetirizine HCl (Zyrtec) 10 mg DAILY PO Last administered on 11/10/16 09:03; Start 11/09/16 at 09:00 Pantoprazole Sodium (Protonix) 40 mg DAILYAC PO Last administered on 11/10/16 09:03; Start 11/09/16 at 07:30 Hydralazine HCl (Apresoline) 10 mg PRN Q4HRS PRN IVP ELEVATED BP, SEE COMMENTS ; Start 11/08/16 at 19:15 Acetaminophen (Tylenol) 650 mg PRN Q6HRS PRN PO MILD PAIN / TEMP; Start at 19:15 Ondansetron HCl (Zofran) 4 mg PRN Q6HRS PRN IV NAUSEA/VOMITING; Start 11/08/16 at 19:15 Lisinopril (Prinivil) 20 mg DAILY PO Last administered on 11/10/16 09:02; Start 11/09/16 at 15:15 Warfarin Sodium (Coumadin) 2.5 mg SuTuSa PO Last administered on 11/09/16 17: 36; Start 11/09/16 at 16:00 Warfarin Sodium (Coumadin) 1 mg SuTuSa PO Last administered on 11/09/16 17:35 ; Start 11/09/16 at 16:00 Warfarin Sodium (Coumadin) 3 mg MoWeThFr PO ; Start 11/10/16 at 16:00 Warfarin Sodium (Coumadin Per Physician) 1 each PRN DAILY PRN [facility] SEE COMMENTS; Start 11/09/16 at 17:45 Zolpidem Tartrate (Ambien) 5 mg PRN QHS PRN PO INSOMNIA Last administered on 21:15; Start 11/09/16 at 21:00 Active Scripts Active [place] 5-325 Tablet (Acetaminophen/Hydrocodone Bitart) 1 Each Tablet 1 Tab PO PRN Q6HRS PRN Reported Norvasc (Amlodipine Besylate) 10 Mg Tablet 10 Mg PO DAILY Methocarbamol 750 Mg Tablet 750 Mg PO BID Loratadine 10 Mg Tablet 10 Mg PO DAILY [metoprolol 50] 75 Mg PO BID Hydrocodone-Apap 5-325 (Hydrocodone Bit/Acetaminophen) 1 Each Tablet 1 Each PO PRN Q6HRS PRN Omeprazole 40 Mg Capsule.dr 40 Mg PO DAILY Vitals/I & O Vital Sign - Last 24 Hours 11/09/16 11/09/16 11/09/16 11/09/16 11:00 15:00 15:01 17:41 Temp 97.7 97.5 97.7 97.5 Pulse 76 88 76 110 Resp 18 20 B/P 155/67 181/73 155/67 184/70 Pulse Ox 99 100 O2 Delivery Room Air Room Air 11/09/16 11/09/16 11/09/16 11/09/16 18:35 19:52 20:00 21:15 Temp 97.7 97.7 Pulse 88 94 Resp 20 20 B/P 125/59 127/67 Pulse Ox 100 96 O2 Delivery Room Air Room Air Room Air 11/09/16 11/09/16 11/10/1613/17 22:15 23:45 03:41 07:33 Temp 97.7 98.5 97.6 97.7 98.5 97.6 Pulse 81 79 78 Resp 18 20 18 18 B/P 117/67 121/53 115/54 Pulse Ox 96 100 97 98 O2 Delivery Room Air Room Air Room Air Room Air 11/10/16 11/10/16 11/10/16 08:00 09:02 09:03 Pulse 78 78 B/P 115/54 115/54 O2 Delivery Room Air Intake and Output 11/09/16 11/09/16 11/10/16 15:00 23:00 07:00 Intake Total 500 ml 440 ml Balance 500 ml 440 ml Images MRI brain: FINDINGS: There is no diffusion restriction. A few tiny foci of T2/FLAIR hyperintensity within the subcortical white matter indicate minimal chronic small vessel ischemic white matter change. The ventricles are normal in size and position. The orbits, paranasal sinuses, temporal bones and calvarium are unremarkable. IMPRESSION: 1. No acute intracranial findings. 2. A few scattered foci of T2/FLAIR white matter hyperintensity are nonspecific but most likely represent minimal chronic microangiopathic change. Carotids normal GARRET SCHMITT MD Nov 10, 2016 11:01
[2016-11-10 11:12] VITALS: BP 126/58
--- NOTE | 2016-11-10 11:15 | PDOC ---
PROGRESS NOTES Chief Complaint Chief Complaint 1. Left arm weakness, numbness, need to rule out cva 2. h/o multiple left leg DVT, PE on Coumadin 3. Uncontrolled HTN 4. GERD 5. OA Plan Echo pending cardiology evaluation pending, stress test in AM titrate BP medications NS recommendations noted PT/OT Pharmacy to dose Coumadin History of Present Illness History of Present Illness still left arm mild weakness Vitals Vitals Vital Signs Date Time Temp Pulse Resp B/P Pulse Ox O2 Delivery O2 Flow Rate FiO2 11/10/16 09:03 78 115/54 11/10/16 08:00 Room Air 11/10/16 07:33 97.6 18 98 97.6 Physical Exam Physical Exam left arm strength 4/5 General: Alert, Oriented X3, Cooperative Heart: Regular rate, Normal S1, Normal S2 Lungs: Clear, Wheezing Abdomen: Normal bowel sounds, Soft Extremities: No clubbing Labs LABS Laboratory Tests Test 11/09/16 11:55 11/10/16 03:26 Prothrombin Time 19.6SEC (11.7-14.0) 20.2SEC (11.7-14.0) Prothromb Time International Ratio 1.8 (0.8-1.1) 1.8 (0.8-1.1) White Blood Count 7.1x10^3/uL (4.0-11.0) Red Blood Count 4.08x10^6/uL (3.50-5.40) Hemoglobin 11.0g/dL (12.0-15.5) Hematocrit 33.6% (36.0-47.0) Mean Corpuscular Volume 82fL (79-100) Mean Corpuscular Hemoglobin 27pg (25-35) Mean Corpuscular Hemoglobin Concent 33g/dL (31-37) Red Cell Distribution Width 14.0% (11.5-14.5) Platelet Count 222x10^3/uL (140-400) Neutrophils (%) (Auto) 51% (31-73) Lymphocytes (%) (Auto) 38% (24-48) Monocytes (%) (Auto) 8% (0-9) Eosinophils (%) (Auto) 3% (0-3) Basophils (%) (Auto) 1% (0-3) Neutrophils # (Auto) 3.6x10^3uL (1.8-7.7) Lymphocytes # (Auto) 2.7x10^3/uL (1.0-4.8) Monocytes # (Auto) 0.6x10^3/uL (0.0-1.1) Eosinophils # (Auto) 0.2x10^3/uL (0.0-0.7) Basophils # (Auto) 0.0x10^3/uL (0.0-0.2) Sodium Level 145mmol/L (136-145) Potassium Level 3.9mmol/L (3.5-5.1) Chloride Level 109mmol/L (98-107) Carbon Dioxide Level 28mmol/L (21-32) Anion Gap 8 (6-14) Blood Urea Nitrogen 13mg/dL (7-20) Creatinine 1.0mg/dL (0.6-1.0) Estimated GFR (Cockcroft-Gault) 66.5 Glucose Level 96mg/dL (70-99) Calcium Level 8.5mg/dL (8.5-10.1) Assessment and Plan Assessmemt and Plan Problems Medical Problems: (1) LUE weakness Status: Acute Problems: Comment Review of Relevant I have reviewed the following items ary (where applicable) has been applied. Labs Laboratory Tests Test 11/08/16 16:40 11/08/16 17:25 11/09/16 00:45 11/09/16 05:55 White Blood Count 8.2x10^3/uL (4.0-11.0) 8.2x10^3/uL (4.0-11.0) Red Blood Count 4.43x10^6/uL (3.50-5.40) 4.11x10^6/uL (3.50-5.40) Hemoglobin 11.9g/dL (12.0-15.5) 11.0g/dL (12.0-15.5) Hematocrit 36.5% (36.0-47.0) 34.7% (36.0-47.0) Mean Corpuscular Volume 83fL (79-100) 84fL (79-100) Mean Corpuscular Hemoglobin 27pg (25-35) 27pg (25-35) Mean Corpuscular Hemoglobin Concent 33g/dL (31-37) 32g/dL (31-37) Red Cell Distribution Width 14.6% (11.5-14.5) 14.8% (11.5-14.5) Platelet Count 223x10^3/uL (140-400) 217x10^3/uL (140-400) Neutrophils (%) (Auto) 66% (31-73) 56% (31-73) Lymphocytes (%) (Auto) 25% (24-48) 34% (24-48) Monocytes (%) (Auto) 7% (0-9) 7% (0-9) Eosinophils (%) (Auto) 2% (0-3) 2% (0-3) Basophils (%) (Auto) 1% (0-3) 1% (0-3) Neutrophils # (Auto) 5.4x10^3uL (1.8-7.7) 4.6x10^3uL (1.8-7.7) Lymphocytes # (Auto) 2.0x10^3/uL (1.0-4.8) 2.8x10^3/uL (1.0-4.8) Monocytes # (Auto) 0.5x10^3/uL (0.0-1.1) 0.5x10^3/uL (0.0-1.1) Eosinophils # (Auto) 0.2x10^3/uL (0.0-0.7) 0.2x10^3/uL (0.0-0.7) Basophils # (Auto) 0.1x10^3/uL (0.0-0.2) 0.0x10^3/uL (0.0-0.2) Prothrombin Time 21.8SEC (11.7-14.0) Prothromb Time International Ratio 2.0 (0.8-1.1) Sodium Level 145mmol/L (136-145) 145mmol/L (136-145) Potassium Level 4.0mmol/L (3.5-5.1) 3.8mmol/L (3.5-5.1) Chloride Level 107mmol/L (98-107) 107mmol/L (98-107) Carbon Dioxide Level 28mmol/L (21-32) 30mmol/L (21-32) Anion Gap 10 (6-14) 8 (6-14) Blood Urea Nitrogen 17mg/dL (7-20) 15mg/dL (7-20) Creatinine 1.0mg/dL (0.6-1.0) 0.8mg/dL (0.6-1.0) Estimated GFR (Cockcroft-Gault) 66.5 86.1 BUN/Creatinine Ratio 17 (6-20) Glucose Level 96mg/dL (70-99) 95mg/dL (70-99) Calcium Level 8.9mg/dL (8.5-10.1) 8.9mg/dL (8.5-10.1) Total Bilirubin 0.5mg/dL (0.2-1.0) Aspartate Amino Transf (AST/SGOT) 24U/L (15-37) Alanine Aminotransferase (ALT/SGPT) 27U/L (14-59) Alkaline Phosphatase 98U/L (46-116) Troponin I Quantitative < 0.017ng/mL (0.000-0.055) < 0.017ng/mL (0.000-0.055) Total Protein 7.7g/dL (6.4-8.2) Albumin 3.7g/dL (3.4-5.0) Albumin/Globulin Ratio 0.9 (1.0-1.7) Urine Collection Type Unknown Urine Color Yellow Urine Clarity Clear Urine pH 7.0 Urine Specific [place] 1.010 Urine Protein Negativemg/dL (NEG-TRACE) Urine Glucose (UA) Negativemg/dL (NEG) Urine Ketones (Stick) Negativemg/dL (NEG) Urine Blood Negative (NEG) Urine Nitrite Negative (NEG) Urine Bilirubin Negative (NEG) Urine Urobilinogen Dipstick 0.2mg/dL (0.2 mg/dL) Urine Leukocyte Esterase Negative (NEG) Urine RBC 0/HPF (0-2) Urine WBC 1-4/HPF (0-4) Urine Squamous Epithelial Cells Few/LPF Urine Bacteria 0/HPF (0-FEW) Test 11/09/16 06:45 11/09/16 11:55 11/10/16 03:26 Troponin I Quantitative < 0.017ng/mL (0.000-0.055) Triglycerides Level 68mg/dL (0-150) Cholesterol Level 190mg/dL (0-200) LDL Cholesterol, Calculated 109mg/dL (0-100) VLDL Cholesterol, Calculated 14mg/dL (0-40) HDL Cholesterol 67mg/dL (40-60) Cholesterol/HDL Ratio 2.8 Prothrombin Time 19.6SEC (11.7-14.0) 20.2SEC (11.7-14.0) Prothromb Time International Ratio 1.8 (0.8-1.1) 1.8 (0.8-1.1) White Blood Count 7.1x10^3/uL (4.0-11.0) Red Blood Count 4.08x10^6/uL (3.50-5.40) Hemoglobin 11.0g/dL (12.0-15.5) Hematocrit 33.6% (36.0-47.0) Mean Corpuscular Volume 82fL (79-100) Mean Corpuscular Hemoglobin 27pg (25-35) Mean Corpuscular Hemoglobin Concent 33g/dL (31-37) Red Cell Distribution Width 14.0% (11.5-14.5) Platelet Count 222x10^3/uL (140-400) Neutrophils (%) (Auto) 51% (31-73) Lymphocytes (%) (Auto) 38% (24-48) Monocytes (%) (Auto) 8% (0-9) Eosinophils (%) (Auto) 3% (0-3) Basophils (%) (Auto) 1% (0-3) Neutrophils # (Auto) 3.6x10^3uL (1.8-7.7) Lymphocytes # (Auto) 2.7x10^3/uL (1.0-4.8) Monocytes # (Auto) 0.6x10^3/uL (0.0-1.1) Eosinophils # (Auto) 0.2x10^3/uL (0.0-0.7) Basophils # (Auto) 0.0x10^3/uL (0.0-0.2) Sodium Level 145mmol/L (136-145) Potassium Level 3.9mmol/L (3.5-5.1) Chloride Level 109mmol/L (98-107) Carbon Dioxide Level 28mmol/L (21-32) Anion Gap 8 (6-14) Blood Urea Nitrogen 13mg/dL (7-20) Creatinine 1.0mg/dL (0.6-1.0) Estimated GFR (Cockcroft-Gault) 66.5 Glucose Level 96mg/dL (70-99) Calcium Level 8.5mg/dL (8.5-10.1) Laboratory Tests Test 11/09/16 11:55 11/10/16 03:26 Prothrombin Time 19.6SEC (11.7-14.0) 20.2SEC (11.7-14.0) Prothromb Time International Ratio 1.8 (0.8-1.1) 1.8 (0.8-1.1) White Blood Count 7.1x10^3/uL (4.0-11.0) Red Blood Count 4.08x10^6/uL (3.50-5.40) Hemoglobin 11.0g/dL (12.0-15.5) Hematocrit 33.6% (36.0-47.0) Mean Corpuscular Volume 82fL (79-100) Mean Corpuscular Hemoglobin 27pg (25-35) Mean Corpuscular Hemoglobin Concent 33g/dL (31-37) Red Cell Distribution Width 14.0% (11.5-14.5) Platelet Count 222x10^3/uL (140-400) Neutrophils (%) (Auto) 51% (31-73) Lymphocytes (%) (Auto) 38% (24-48) Monocytes (%) (Auto) 8% (0-9) Eosinophils (%) (Auto) 3% (0-3) Basophils (%) (Auto) 1% (0-3) Neutrophils # (Auto) 3.6x10^3uL (1.8-7.7) Lymphocytes # (Auto) 2.7x10^3/uL (1.0-4.8) Monocytes # (Auto) 0.6x10^3/uL (0.0-1.1) Eosinophils # (Auto) 0.2x10^3/uL (0.0-0.7) Basophils # (Auto) 0.0x10^3/uL (0.0-0.2) Sodium Level 145mmol/L (136-145) Potassium Level 3.9mmol/L (3.5-5.1) Chloride Level 109mmol/L (98-107) Carbon Dioxide Level 28mmol/L (21-32) Anion Gap 8 (6-14) Blood Urea Nitrogen 13mg/dL (7-20) Creatinine 1.0mg/dL (0.6-1.0) Estimated GFR (Cockcroft-Gault) 66.5 Glucose Level 96mg/dL (70-99) Calcium Level 8.5mg/dL (8.5-10.1) Medications Current Medications Ondansetron HCl (Zofran) 4 mg PRN Q8HRS PRN IV NAUSEA/VOMITING; Start 11/08/16 at 18:45; Stop 11/08/16 at 19:16; Status DC Morphine Sulfate 2 mg PRN Q2HR PRN IV PAIN; Start 11/08/16 at 18:45; Stop 11/09 at 18:44; Status DC Acetaminophen (Tylenol) 650 mg PRN Q4HRS PRN PO FEVER; Start 11/08/16 at 18:45 ; Stop 11/08/16 at 19:16; Status DC Amlodipine Besylate (Norvasc) 10 mg DAILY PO Last administered on 11/10/16 09: 03; Start 11/09/16 at 09:00 Acetaminophen/ Hydrocodone Bitart (Lortab 5/325) 1 tab PRN Q6HRS PRN PO PAIN Last administered on 11/09/16 21:15; Start 11/08/16 at 19:15 Methocarbamol (Robaxin) 750 mg BID PO Last administered on 11/10/16 09:03; Start 11/08/16 at 21:00 Cetirizine HCl (Zyrtec) 10 mg DAILY PO Last administered on 11/10/16 09:03; Start 11/09/16 at 09:00 Pantoprazole Sodium (Protonix) 40 mg DAILYAC PO Last administered on 11/10/16 09:03; Start 11/09/16 at 07:30 Hydralazine HCl (Apresoline) 10 mg PRN Q4HRS PRN IVP ELEVATED BP, SEE COMMENTS ; Start 11/08/16 at 19:15 Acetaminophen (Tylenol) 650 mg PRN Q6HRS PRN PO MILD PAIN / TEMP; Start at 19:15 Ondansetron HCl (Zofran) 4 mg PRN Q6HRS PRN IV NAUSEA/VOMITING; Start 11/08/16 at 19:15 Lisinopril (Prinivil) 20 mg DAILY PO Last administered on 11/10/16 09:02; Start 11/09/16 at 15:15 Warfarin Sodium (Coumadin) 2.5 mg SuTuSa PO Last administered on 11/09/16 17: 36; Start 11/09/16 at 16:00 Warfarin Sodium (Coumadin) 1 mg SuTuSa PO Last administered on 11/09/16 17:35 ; Start 11/09/16 at 16:00 Warfarin Sodium (Coumadin) 3 mg MoWeThFr PO ; Start 11/10/16 at 16:00 Warfarin Sodium (Coumadin Per Physician) 1 each PRN DAILY PRN MC SEE COMMENTS; Start 11/09/16 at 17:45 Zolpidem Tartrate (Ambien) 5 mg PRN QHS PRN PO INSOMNIA Last administered on 21:15; Start 11/09/16 at 21:00 Active Scripts Active [place] 5-325 Tablet (Acetaminophen/Hydrocodone Bitart) 1 Each Tablet 1 Tab PO PRN Q6HRS PRN Reported Norvasc (Amlodipine Besylate) 10 Mg Tablet 10 Mg PO DAILY Methocarbamol 750 Mg Tablet 750 Mg PO BID Loratadine 10 Mg Tablet 10 Mg PO DAILY [metoprolol 50] 75 Mg PO BID Hydrocodone-Apap 5-325 (Hydrocodone Bit/Acetaminophen) 1 Each Tablet 1 Each PO PRN Q6HRS PRN Omeprazole 40 Mg Capsule.dr 40 Mg PO DAILY Vitals/I & O Vital Sign - Last 24 Hours 11/09/16 11/09/16 11/09/16 11/09/16 15:00 15:01 17:41 18:35 Temp 97.5 97.5 Pulse 88 76 110 88 Resp 20 B/P 181/73 155/67 184/70 125/59 Pulse Ox 100 O2 Delivery Room Air 11/09/16 11/09/16 11/09/16 11/09/16 19:52 20:00 21:15 22:15 Temp 97.7 97.7 Pulse 94 Resp 20 20 18 B/P 127/67 Pulse Ox 100 96 96 O2 Delivery Room Air Room Air Room Air Room Air 11/09/16 11/10/16 11/10/16 11/10/16 23:45 03:41 07:33 08:00 Temp 97.7 98.5 97.6 97.7 98.5 97.6 Pulse 81 79 78 Resp 20 18 18 B/P 117/67 121/53 115/54 Pulse Ox 100 97 98 O2 Delivery Room Air Room Air Room Air Room Air 11/10/16 11/10/16 09:02 09:03 Pulse 78 78 B/P 115/54 115/54 Intake and Output 11/09/16 11/09/16 11/10/16 15:00 23:00 07:00 Intake Total 500 ml 440 ml Balance 500 ml 440 ml CASSANDRA LATHAM MD Nov 10, 2016 11:15
[2016-11-10] MEDS ORDERED: NICOTINE 14MG PATCH. TD PRN (11:30)
[2016-11-10] MEDS: METOPROLOL TART IMMED RELEASE 25 MG TABLET PO SCH ×2 (12:59→20:42)
[2016-11-10] MEDS ORDERED: methylPREDNISolone SOD SUCC PF 40 MG/ML VIAL. IV SCH (14:00)
[2016-11-10 15:15] VITALS: BP 119/59
[2016-11-10] MEDS ORDERED: WARFARIN 3 MG TABLET. PO SCH (16:00)
--- NOTE | 2016-11-10 17:03 | CARD ---
APPROVED REPORT EXAM: Two-dimensional and M-mode echocardiogram with Doppler and color Doppler. Other Information Quality : Average Rhythm : NSR INDICATION Murmur 2D DIMENSIONS RVDd2.3 (2.9-3.5cm)Left Atrium(2D)3.1 (1.6-4.0cm) IVSd0.9 (0.7-1.1cm)Aortic Root(2D)2.6 (2.0-3.7cm) LVDd3.7 (3.9-5.9cm)LVOT Diameter2.0 (1.8-2.4cm) PWd0.9 (0.7-1.1cm)LVDs2.3 (2.5-4.0cm) FS (%) 34.9 %SV39.1 ml LVEF(%)65.7 (>50%) Aortic Valve AoV Peak Oswald.155.0cm/sAoV VTI30.0cm AO Peak GR.9.6mmHgLVOT Peak Oswald.122.8cm/s AO Mean GR.6mmHgAVA (VMAX)2.49cm2 CARMEN (VTI)2.60cm2 Mitral Valve MV E Ycranfzg85.8cm/sMV E Peak Gr.4mmHg MV DECEL [id number] A Unuzddcn602.6cm/s MV E Mean Gr.2mmHgMV [id number] E/A Ratio0.6MV A Eodyltcr576ri MVA (PHT)2.88cm2 Tricuspid Valve TR P. Knbppsww130kg/sRAP [id number] TR Peak Gr.37fhOrYRDW54tyTi Pulmonary Vein S1 Tpcxqrrf16.1cm/sD2 Osysskgo91.7cm/s LEFT VENTRICLE The left ventricle is normal size. There is normal left ventricular wall thickness. Left ventricle sy stolic function is normal. The Ejection Fraction is 60-65%. There is normal LV segmental wall motion. Tissue Doppler imaging reveals mild left ventricular diastolic dysfunction. RIGHT VENTRICLE The right ventricle is normal size. The right ventricular systolic function is normal. ATRIA The left atrium size is normal. The right atrium size is normal. The interatrial septum is intact wit h no evidence for an atrial septal defect or patent foramen ovale as noted on 2-D or Doppler imaging. AORTIC VALVE The aortic valve is normal in structure and function. The aortic valve is trileaflet. Doppler and Col or Flow revealed no significant aortic regurgitation. There is no significant aortic valvular stenosi s. MITRAL VALVE The mitral valve is normal in structure and function. There is no mitral valve stenosis. Doppler and Color Flow revealed no mitral valve regurgitation noted. TRICUSPID VALVE The tricuspid valve is normal in structure. Doppler and Color Flow revealed mild tricuspid regurgitat ion. The PA pressure was estimated at 36 mmHg. There is no tricuspid valve stenosis. PULMONIC VALVE The pulmonic valve is not well visualized. Doppler and Color Flow revealed no pulmonic valvular regur gitation. There is no pulmonic valvular stenosis. GREAT VESSELS The aortic root is normal in size. Normal pulmonary venous flow (Doppler). The IVC is normal in size and collapses >50% with inspiration. PERICARDIAL EFFUSION There is no evidence of significant pericardial effusion. Critical Notification Critical Value: No <Conclusion> Left ventricle systolic function is normal. The Ejection Fraction is 60-65%. There is normal LV segmental wall motion.
[2016-11-10] MEDS: HYDROCODONE/APAP 5/325MG TABLET. PO PRN (18:39)
[2016-11-10 19:42] VITALS: BP 151/62
[2016-11-10] MEDS: ZOLPIDEM 5 MG TABLET. PO PRN (20:41)
[2016-11-10 23:27] VITALS: BP 132/63
[2016-11-11 03:30] VITALS: BP 123/54
[2016-11-11 05:25] LABS: PROTHROMBIN TIME PATIENT 21.5 SEC (11.7-14.0)
[2016-11-11 07:59] VITALS: BP 110/55
[2016-11-11] MEDS ORDERED: REGADENOSON 0.4 MG/5 ML DISP.SYRIN. IV ONE (08:15)
[2016-11-11] MEDS: CETIRIZINE HCL 10 MG TABLET PO SCH (09:10)
[2016-11-11] MEDS: METHOCARBAMOL 750 MG TABLET PO SCH ×2 (09:10→21:48)
[2016-11-11] MEDS: AMLODIPINE BESYLATE 10 MG TABLET PO SCH (09:11)
[2016-11-11] MEDS: LISINOPRIL 20 MG TABLET PO SCH (09:11)
[2016-11-11] MEDS: PANTOPRAZOLE 40 MG TABLET. PO SCH (09:11)
[2016-11-11] MEDS: METOPROLOL TART IMMED RELEASE 25 MG TABLET PO SCH ×2 (09:11→21:49)
[2016-11-11] MEDS: HYDROCODONE/APAP 5/325MG TABLET. PO PRN ×2 (09:17→21:57)
[2016-11-11 11:16] VITALS: BP 104/53
--- NOTE | 2016-11-11 11:35 | PDOC ---
PROGRESS NOTES Chief Complaint Chief Complaint 1. Left arm weakness, numbness, need to rule out cva 2. h/o multiple left leg DVT, PE on Coumadin 3. Uncontrolled HTN 4. GERD 5. OA Plan Stress test today BP Medications need adjustment, Pt didn't like Lisinopril due to prior bad experience, NS recommendations noted PT/OT Pharmacy to dose Coumadin INR goal 2-3 History of Present Illness History of Present Illness no symptoms no chest pain Vitals Vitals Vital Signs Date Time Temp Pulse Resp B/P Pulse Ox O2 Delivery O2 Flow Rate FiO2 11/11/16 11:16 97.9 77 16 104/53 100 Room Air 97.9 Physical Exam Physical Exam left arm strength 4/5 General: Alert, Oriented X3, Cooperative, No acute distress Heart: Regular rate, Normal S1, Normal S2, Other (2/6 systolic murmur. Tele: SR /ST ) Lungs: Clear, Wheezing Abdomen: Soft, No tenderness Extremities: No cyanosis, Normal pulses, Other (trace LE edema ) Skin: No breakdown, No significant lesion Labs LABS Laboratory Tests Test 11/11/16 04:45 Prothrombin Time 21.5SEC (11.7-14.0) Prothromb Time International Ratio 2.0 (0.8-1.1) Assessment and Plan Assessmemt and Plan Problems Medical Problems: (1) LUE weakness Status: Acute Problems: Comment Review of Relevant I have reviewed the following items ary (where applicable) has been applied. Labs Laboratory Tests Test 11/09/16 11:55 11/10/16 03:26 11/11/16 04:45 Prothrombin Time 19.6SEC (11.7-14.0) 20.2SEC (11.7-14.0) 21.5SEC (11.7-14.0) Prothromb Time International Ratio 1.8 (0.8-1.1) 1.8 (0.8-1.1) 2.0 (0.8-1.1) White Blood Count 7.1x10^3/uL (4.0-11.0) Red Blood Count 4.08x10^6/uL (3.50-5.40) Hemoglobin 11.0g/dL (12.0-15.5) Hematocrit 33.6% (36.0-47.0) Mean Corpuscular Volume 82fL (79-100) Mean Corpuscular Hemoglobin 27pg (25-35) Mean Corpuscular Hemoglobin Concent 33g/dL (31-37) Red Cell Distribution Width 14.0% (11.5-14.5) Platelet Count 222x10^3/uL (140-400) Neutrophils (%) (Auto) 51% (31-73) Lymphocytes (%) (Auto) 38% (24-48) Monocytes (%) (Auto) 8% (0-9) Eosinophils (%) (Auto) 3% (0-3) Basophils (%) (Auto) 1% (0-3) Neutrophils # (Auto) 3.6x10^3uL (1.8-7.7) Lymphocytes # (Auto) 2.7x10^3/uL (1.0-4.8) Monocytes # (Auto) 0.6x10^3/uL (0.0-1.1) Eosinophils # (Auto) 0.2x10^3/uL (0.0-0.7) Basophils # (Auto) 0.0x10^3/uL (0.0-0.2) Sodium Level 145mmol/L (136-145) Potassium Level 3.9mmol/L (3.5-5.1) Chloride Level 109mmol/L (98-107) Carbon Dioxide Level 28mmol/L (21-32) Anion Gap 8 (6-14) Blood Urea Nitrogen 13mg/dL (7-20) Creatinine 1.0mg/dL (0.6-1.0) Estimated GFR (Cockcroft-Gault) 66.5 Glucose Level 96mg/dL (70-99) Calcium Level 8.5mg/dL (8.5-10.1) Laboratory Tests Test 11/11/16 04:45 Prothrombin Time 21.5SEC (11.7-14.0) Prothromb Time International Ratio 2.0 (0.8-1.1) Medications Current Medications Ondansetron HCl (Zofran) 4 mg PRN Q8HRS PRN IV NAUSEA/VOMITING; Start 11/08/16 at 18:45; Stop 11/08/16 at 19:16; Status DC Morphine Sulfate 2 mg PRN Q2HR PRN IV PAIN; Start 11/08/16 at 18:45; Stop 11/09 at 18:44; Status DC Acetaminophen (Tylenol) 650 mg PRN Q4HRS PRN PO FEVER; Start 11/08/16 at 18:45 ; Stop 11/08/16 at 19:16; Status DC Amlodipine Besylate (Norvasc) 10 mg DAILY PO Last administered on 11/11/16 09: 11; Start 11/09/16 at 09:00 Acetaminophen/ Hydrocodone Bitart (Lortab 5/325) 1 tab PRN Q6HRS PRN PO MODERATE - SEVERE PAIN Last administered on 11/11/16 09:17; Start 11/08/16 at 19:15 Methocarbamol (Robaxin) 750 mg BID PO Last administered on 11/11/16 09:10; Start 11/08/16 at 21:00 Cetirizine HCl (Zyrtec) 10 mg DAILY PO Last administered on 11/11/16 09:10; Start 11/09/16 at 09:00 Pantoprazole Sodium (Protonix) 40 mg DAILYAC PO Last administered on 11/11/16 09:11; Start 11/09/16 at 07:30 Hydralazine HCl (Apresoline) 10 mg PRN Q4HRS PRN IVP ELEVATED BP, SEE COMMENTS ; Start 11/08/16 at 19:15 Acetaminophen (Tylenol) 650 mg PRN Q6HRS PRN PO MILD PAIN / TEMP; Start at 19:15 Ondansetron HCl (Zofran) 4 mg PRN Q6HRS PRN IV NAUSEA/VOMITING; Start 11/08/16 at 19:15 Lisinopril (Prinivil) 20 mg DAILY PO Last administered on 11/11/16 09:11; Start 11/09/16 at 15:15 Warfarin Sodium (Coumadin) 2.5 mg SuTuSa PO Last administered on 11/09/16 17: 36; Start 11/09/16 at 16:00 Warfarin Sodium (Coumadin) 1 mg SuTuSa PO Last administered on 11/09/16 17:35 ; Start 11/09/16 at 16:00 Warfarin Sodium (Coumadin) 3 mg MoWeThFr PO Last administered on 11/10/16 18: 36; Start 11/10/16 at 16:00 Warfarin Sodium (Coumadin Per Physician) 1 each PRN DAILY PRN MC SEE COMMENTS Last administered on 11/10/16 13:31; Start 11/09/16 at 17:45 Zolpidem Tartrate (Ambien) 5 mg PRN QHS PRN PO INSOMNIA Last administered on 20:41; Start 11/09/16 at 21:00 Metoprolol Tartrate (Lopressor) 25 mg BID PO Last administered on 11/11/16 09: 11; Start 11/10/16 at 11:30 Methylprednisolone Sodium Succinate (Solu-Medrol 40mg Vial) 40 mg TID IV ; Start 11/10/16 at 14:00; Status Cancel Nicotine (Nicoderm Cq 14mg) 1 patch PRN DAILY PRN TD SMOKING CESSATION; Start 11/10/16 at 11:30; Stop 11/10/16 at 13:13; Status DC Regadenoson (Lexiscan) 0.4 mg 1X ONCE IV Last administered on 11/11/16 08:19 ; Start 11/11/16 at 08:15; Stop 11/11/16 at 08:16; Status DC Active Scripts Active [place] 5-325 Tablet (Acetaminophen/Hydrocodone Bitart) 1 Each Tablet 1 Tab PO PRN Q6HRS PRN Reported Norvasc (Amlodipine Besylate) 10 Mg Tablet 10 Mg PO DAILY Methocarbamol 750 Mg Tablet 750 Mg PO BID Loratadine 10 Mg Tablet 10 Mg PO DAILY [metoprolol 50] 75 Mg PO BID Hydrocodone-Apap 5-325 (Hydrocodone Bit/Acetaminophen) 1 Each Tablet 1 Each PO PRN Q6HRS PRN Omeprazole 40 Mg Capsule.dr 40 Mg PO DAILY Vitals/I & O Vital Sign - Last 24 Hours 11/10/16 11/10/16 11/10/16 11/10/16 12:59 15:15 18:39 19:39 Temp 97.5 97.5 Pulse 89 82 Resp 18 20 B/P 126/58 119/59 Pulse Ox 100 O2 Delivery Room Air Room Air Room Air 11/10/16 11/10/16 11/10/16 11/10/16 19:42 20:00 20:42 23:27 Temp 97.5 96.6 97.5 96.6 Pulse 80 80 71 Resp 20 20 B/P 151/62 151/62 132/63 Pulse Ox 100 100 O2 Delivery Room Air Room Air Room Air 11/11/16 11/11/16 11/11/16 11/11/16 03:30 07:59 09:11 09:11 Temp 98.6 97.7 98.6 97.7 Pulse 65 76 76 76 Resp 16 16 B/P 123/54 110/55 110/55 110/55 Pulse Ox 96 96 O2 Delivery Room Air Room Air 11/11/16 11/11/16 11/11/16 09:11 09:17 11:16 Temp 97.9 97.9 Pulse 76 77 Resp 16 B/P 110/55 104/53 Pulse Ox 96 100 O2 Delivery Room Air Room Air Intake and Output 11/10/16 11/10/16 11/11/16 15:00 23:00 07:00 Intake Total 500 ml 690 ml Balance 500 ml 690 ml CASSANDRA LATHAM MD Nov 11, 2016 11:34
--- NOTE | 2016-11-11 11:47 | PDOC ---
PROGRESS NOTES Assessment Problems Medical Problems: (1) LUE weakness Status: Acute Stroke-like symptoms related to hypertension, suspect hypertensive encephalopathy Left arm pain, consider anginal equivalent, Cardiology consultation appreciated. I find no evidence of cervical radiculopathy. On warfarin for history of pulmonary emboli Plan Continue aspirin Home when cardiology evaluation completed Follow-up with neurology as needed Subjective No complaints, had pharmacologic cardiac stress test Objective Vital Signs Date Time Temp Pulse Resp B/P Pulse Ox O2 Delivery O2 Flow Rate FiO2 11/11/16 11:16 97.9 77 16 104/53 100 Room Air 97.9 Intake and Output 11/11/16 07:00 Intake Total 1190 ml Balance 1190 ml Intake Oral 1190 ml # Voids 8 PHYSICAL EXAM Alert. Oriented to time, place and person. PERRL. EOMI. CN: no focal findings. Muscle tone: normal. Muscle strength: 5/5 DTR: 2+ Plantar reflex: flexor Gait: normal. Sensory exam: no abnormal findings. No cerebellar signs elicited. Review of Relevant I have reviewed the following items ary (where applicable) has been applied. Labs Laboratory Tests Test 11/09/16 11:55 11/10/16 03:26 11/11/16 04:45 Prothrombin Time 19.6SEC (11.7-14.0) 20.2SEC (11.7-14.0) 21.5SEC (11.7-14.0) Prothromb Time International Ratio 1.8 (0.8-1.1) 1.8 (0.8-1.1) 2.0 (0.8-1.1) White Blood Count 7.1x10^3/uL (4.0-11.0) Red Blood Count 4.08x10^6/uL (3.50-5.40) Hemoglobin 11.0g/dL (12.0-15.5) Hematocrit 33.6% (36.0-47.0) Mean Corpuscular Volume 82fL (79-100) Mean Corpuscular Hemoglobin 27pg (25-35) Mean Corpuscular Hemoglobin Concent 33g/dL (31-37) Red Cell Distribution Width 14.0% (11.5-14.5) Platelet Count 222x10^3/uL (140-400) Neutrophils (%) (Auto) 51% (31-73) Lymphocytes (%) (Auto) 38% (24-48) Monocytes (%) (Auto) 8% (0-9) Eosinophils (%) (Auto) 3% (0-3) Basophils (%) (Auto) 1% (0-3) Neutrophils # (Auto) 3.6x10^3uL (1.8-7.7) Lymphocytes # (Auto) 2.7x10^3/uL (1.0-4.8) Monocytes # (Auto) 0.6x10^3/uL (0.0-1.1) Eosinophils # (Auto) 0.2x10^3/uL (0.0-0.7) Basophils # (Auto) 0.0x10^3/uL (0.0-0.2) Sodium Level 145mmol/L (136-145) Potassium Level 3.9mmol/L (3.5-5.1) Chloride Level 109mmol/L (98-107) Carbon Dioxide Level 28mmol/L (21-32) Anion Gap 8 (6-14) Blood Urea Nitrogen 13mg/dL (7-20) Creatinine 1.0mg/dL (0.6-1.0) Estimated GFR (Cockcroft-Gault) 66.5 Glucose Level 96mg/dL (70-99) Calcium Level 8.5mg/dL (8.5-10.1) Laboratory Tests Test 11/11/16 04:45 Prothrombin Time 21.5SEC (11.7-14.0) Prothromb Time International Ratio 2.0 (0.8-1.1) Medications Current Medications Ondansetron HCl (Zofran) 4 mg PRN Q8HRS PRN IV NAUSEA/VOMITING; Start 11/08/16 at 18:45; Stop 11/08/16 at 19:16; Status DC Morphine Sulfate 2 mg PRN Q2HR PRN IV PAIN; Start 11/08/16 at 18:45; Stop 11/09 at 18:44; Status DC Acetaminophen (Tylenol) 650 mg PRN Q4HRS PRN PO FEVER; Start 11/08/16 at 18:45 ; Stop 11/08/16 at 19:16; Status DC Amlodipine Besylate (Norvasc) 10 mg DAILY PO Last administered on 11/11/16t 09: 11; Start 11/09/16 at 09:00 Acetaminophen/ Hydrocodone Bitart (Lortab 5/325) 1 tab PRN Q6HRS PRN PO MODERATE - SEVERE PAIN Last administered on 11/11/16 09:17; Start 11/08/16 at 19:15 Methocarbamol (Robaxin) 750 mg BID PO Last administered on 11/11/16 09:10; Start 11/08/16 at 21:00 Cetirizine HCl (Zyrtec) 10 mg DAILY PO Last administered on 11/11/16 09:10; Start 11/09/16 at 09:00 Pantoprazole Sodium (Protonix) 40 mg DAILYAC PO Last administered on 11/11/16 09:11; Start 11/09/16 at 07:30 Hydralazine HCl (Apresoline) 10 mg PRN Q4HRS PRN IVP ELEVATED BP, SEE COMMENTS ; Start 11/08/16 at 19:15 Acetaminophen (Tylenol) 650 mg PRN Q6HRS PRN PO MILD PAIN / TEMP; Start at 19:15 Ondansetron HCl (Zofran) 4 mg PRN Q6HRS PRN IV NAUSEA/VOMITING; Start 11/08/16 at 19:15 Lisinopril (Prinivil) 20 mg DAILY PO Last administered on 11/11/16 09:11; Start 11/09/16 at 15:15 Warfarin Sodium (Coumadin) 2.5 mg SuTuSa PO Last administered on 11/09/16 17: 36; Start 11/09/16 at 16:00 Warfarin Sodium (Coumadin) 1 mg SuTuSa PO Last administered on 11/09/16 17:35 ; Start 11/09/16 at 16:00 Warfarin Sodium (Coumadin) 3 mg MoWeThFr PO Last administered on 11/10/16 18: 36; Start 11/10/16 at 16:00 Warfarin Sodium (Coumadin Per Physician) 1 each PRN DAILY PRN MC SEE COMMENTS Last administered on 11/10/16 13:31; Start 11/09/16 at 17:45 Zolpidem Tartrate (Ambien) 5 mg PRN QHS PRN PO INSOMNIA Last administered on 20:41; Start 11/09/16 at 21:00 Metoprolol Tartrate (Lopressor) 25 mg BID PO Last administered on 11/11/16 09: 11; Start 11/10/16 at 11:30 Methylprednisolone Sodium Succinate (Solu-Medrol 40mg Vial) 40 mg TID IV ; Start 11/10/16 at 14:00; Status Cancel Nicotine (Nicoderm Cq 14mg) 1 patch PRN DAILY PRN TD SMOKING CESSATION; Start 11/10/16 at 11:30; Stop 11/10/16 at 13:13; Status DC Regadenoson (Lexiscan) 0.4 mg 1X ONCE IV Last administered on 11/11/16 08:19 ; Start 11/11/16 at 08:15; Stop 11/11/16 at 08:16; Status DC Active Scripts Active [place] 5-325 Tablet (Acetaminophen/Hydrocodone Bitart) 1 Each Tablet 1 Tab PO PRN Q6HRS PRN Reported Norvasc (Amlodipine Besylate) 10 Mg Tablet 10 Mg PO DAILY Methocarbamol 750 Mg Tablet 750 Mg PO BID Loratadine 10 Mg Tablet 10 Mg PO DAILY [metoprolol 50] 75 Mg PO BID Hydrocodone-Apap 5-325 (Hydrocodone Bit/Acetaminophen) 1 Each Tablet 1 Each PO PRN Q6HRS PRN Omeprazole 40 Mg Capsule.dr 40 Mg PO DAILY Vitals/I & O Vital Sign - Last 24 Hours 11/10/16 11/10/16 11/10/16 11/10/16 12:59 15:15 18:39 19:39 Temp 97.5 97.5 Pulse 89 82 Resp 18 20 B/P 126/58 119/59 Pulse Ox 100 O2 Delivery Room Air Room Air Room Air 11/10/16 11/10/16 11/10/16 11/10/16 19:42 20:00 20:42 23:27 Temp 97.5 96.6 97.5 96.6 Pulse 80 80 71 Resp 20 20 B/P 151/62 151/62 132/63 Pulse Ox 100 100 O2 Delivery Room Air Room Air Room Air 11/11/16 11/11/16 11/11/16 11/11/16 03:30 07:59 09:11 09:11 Temp 98.6 97.7 98.6 97.7 Pulse 65 76 76 76 Resp 16 16 B/P 123/54 110/55 110/55 110/55 Pulse Ox 96 96 O2 Delivery Room Air Room Air 11/11/16 11/11/16 11/11/16 09:11 09:17 11:16 Temp 97.9 97.9 Pulse 76 77 Resp 16 B/P 110/55 104/53 Pulse Ox 96 100 O2 Delivery Room Air Room Air Intake and Output 11/10/16 11/10/16 11/11/16 15:00 23:00 07:00 Intake Total 500 ml 690 ml Balance 500 ml 690 ml Images Echocardiogram: LEFT VENTRICLE The left ventricle is normal size. There is normal left ventricular wall thickness. Left ventricle systolic function is normal. The Ejection Fraction is 60-65%. There is normal LV segmental wall motion. Tissue Doppler imaging reveals mild left ventricular diastolic dysfunction. RIGHT VENTRICLE The right ventricle is normal size. The right ventricular systolic function is normal. ATRIA The left atrium size is normal. The right atrium size is normal. The interatrial septum is intact with no evidence for an atrial septal defect or patent foramen ovale as noted on 2-D or Doppler imaging. AORTIC VALVE The aortic valve is normal in structure and function. The aortic valve is trileaflet. Doppler and Color Flow revealed no significant aortic regurgitation. There is no significant aortic valvular stenosis. MITRAL VALVE The mitral valve is normal in structure and function. There is no mitral valve stenosis. Doppler and Color Flow revealed no mitral valve regurgitation noted. TRICUSPID VALVE The tricuspid valve is normal in structure. Doppler and Color Flow revealed mild tricuspid regurgitation. The PA pressure was estimated at 36 mmHg. There is no tricuspid valve stenosis. PULMONIC VALVE The pulmonic valve is not well visualized. Doppler and Color Flow revealed no pulmonic valvular regurgitation. There is no pulmonic valvular stenosis. GREAT VESSELS The aortic root is normal in size. Normal pulmonary venous flow (Doppler). The IVC is normal in size and collapses >50% with inspiration. PERICARDIAL EFFUSION There is no evidence of significant pericardial effusion. Critical Notification Critical Value: No <Conclusion> Left ventricle systolic function is normal. The Ejection Fraction is 60-65%. There is normal LV segmental wall motion. GARRET SCHMITT MD Nov 11, 2016 11:47
--- NOTE | 2016-11-11 13:20 | RAD ---
APPROVED REPORT Test Type: Pharmacological Stress Nurse/Tech: Celia Cunha R.N. Test Indications: increased HTN, pain in arms Cardiac History: htn, palpations Medications: See Electronic Medical Record Medical History: See Electronic Medical Record Resting ECG: SR Resting Heart Rate: 71 bpm Resting Blood Pressure: 136/59mmHg Pretest Chest Pain: No chest pain Nurse/Tech Notes S1S2, lungs CTA Consent: The procedure was explained to the patient in lay terms. Informed consent was witnessed. [place] eout was entered into [employer]. History and Stress Test performed by RT Neel Santos) (N) Pharm. Details Pharmacologic stress testing was performed using 0.4mg per 5ml of regadenoson given intravenously ove r 7-10 seconds. Stress Symptoms Dyspnea,Nausea both of which resolved by the end of recovery period POST EXERCISE Reason for Termination: Infusion complete Max HR: 124 bpm Max Blood Pressure: 135/57mmHg Blood Pressure response to exercise: Normal blood pressure response during stress. Heart Rate response to exercise: wnl Chest Pain: No. Arrhythmia: No. ST Change: No. INTERPRETATION Stress EKG Conclusion: Negative Imaging Protocol IMAGE PROTOCOL: Stress Tc-99m/rest Tc-99m 2 days Rest: Stress: Viability: Radiopharm. Tc99m Sestamibi Dose37.7mCi Duration 12min. Img Date 11/11/2016 Inj-Img [id number]. Stress Admin Site: IV - Right WristAdministrator: RT Danielle (R)(N) STRESS DATA End Diast. Vol.62.0mlAv. Heart Rate84.0bpm End Syst. Vol.11.0mlCO Index BSA0.0L/min Myocardial Onjv162.0gEject. Umyxemtf15.0% Stress Rates Pk. Fill Rate3.70EDV/secLVtime Pk. Fill 169.24msec Pk. Empty Rate3.67ESV/secLVtime Pk. Eject91.21msec / Pk. Fill1.05EDV/sec Stress Scores Regional WT0.00Summed WT0.00 Regional WM0.00Summed WM0.00 LV Perfusion Normal myocardial perfusion at stress. Wall Motion Normal LV Perf. Quant 17 Seg. SSS0.00 Stress Defect Extent (% LAD)0.00Rest Defect Extent (% LAD)Rev. Defect Extent (% LAD)0.00 Stress Defect Extent (% LCX) 0.00Rest Defect Extent (% LCX)Rev. Defect Extent (% LCX)0.00 Stress Defect Extent (% RCA)0.00Rest Defect Extent (% RCA)Rev. Defect Extent (% RCA)0.00 Stress Defect Extent (% ARPAN)0.00Rest Defect Extent (% ARPAN)Rev. Defect Extent (% ARPAN)0.00 Other Information Quality:Good Risk Assessment: Low Risk Conclusion 1. Normal EKG response to vasodilator stress. 2. Normal myocardial perfusion at stress. 3. Normal EF at > 70% 4. Low risk study.
--- NOTE | 2016-11-11 14:15 | PDOC ---
JOHN GUAJARDO APRN 11/11/16 1415: CARDIO Progress Notes Date and Time Date of Service 11/11/16 Time of Evaluation 1210 Subjective Subjective: No Chest Pain, No shortness of breath, No Palpitations, Other ( left arm pain resolved) Vitals Vitals Vital Signs Date Time Temp Pulse Resp B/P Pulse Ox O2 Delivery O2 Flow Rate FiO2 11/11/16 11:16 97.9 77 16 104/53 100 Room Air 97.9 Weight Weight [ ] Input and Output Intake and Output Intake and Output 11/11/16 07:00 Intake Total 1190 ml Balance 1190 ml Intake Oral 1190 ml # Voids 8 Laboratory Labs Laboratory Tests Test 11/11/16 04:45 Prothrombin Time 21.5SEC (11.7-14.0) Prothromb Time International Ratio 2.0 (0.8-1.1) Physical Exam HEENT: Neck Supple W Full Motion Chest: Symmetric LUNGS: Clear to Auscultation Heart: S1S2, RRR Abdomen: Normal Aortic Impulse, Soft N/T Extremities: No Calf Tenderness, Other (trace bi LE edema) Neurology: alert, oriented, follow commands Assessment Assessment 1. Left arm pain/weakness- CVA ruled out 2. Malignant hypertension 3. Sinus tachycardia 4. Hyperlipidemia: LDL 109 5. H/o DVT/PE; on warfarin Recommendations Continue BB for rate control MPI with no evidence of ischemia. May discharge home from CV perspective. Maintain BP control- discussed home monitoring. GALDINO RODRIGUEZ MD 11/11/16 1519: CARDIO Progress Notes Plan Plan Patient seen and examined. Agree with above nurse practitioner note. No acute events overnight. No recurrent pain. Normal cardiac exam. Myocardial perfusion study is unremarkable. Okay to discharge from a cardiac perspective. Thank you for this consultation. JOHN GUAJARDO APRN Nov 11, 2016 14:15 GALDINO RODRIGUEZ MD Nov 11, 2016 15:19
[2016-11-11 15:54] VITALS: BP 150/70
[2016-11-11] MEDS: WARFARIN 2.5 MG TABLET. PO SCH (16:08)
[2016-11-11] MEDS: WARFARIN 1 MG TABLET. PO SCH (16:08)
[2016-11-11 19:20] VITALS: BP 122/62
[2016-11-11] MEDS: ZOLPIDEM 5 MG TABLET. PO PRN (22:51)
[2016-11-11 23:05] VITALS: BP 131/55
[2016-11-12 03:20] VITALS: BP 117/64
[2016-11-12 06:27] LABS: INR 2.2 (0.8-1.1); PROTHROMBIN TIME PATIENT 23.2 SEC (11.7-14.0)
[2016-11-12 07:00] VITALS: BP 122/61
[2016-11-12] MEDS: PANTOPRAZOLE 40 MG TABLET. PO SCH (08:19)
[2016-11-12] MEDS ORDERED: LOSARTAN POTASSIUM 25 MG TABLET. PO SCH (09:00)
[2016-11-12] MEDS: AMLODIPINE BESYLATE 10 MG TABLET PO SCH (09:07)
[2016-11-12] MEDS: METOPROLOL TART IMMED RELEASE 25 MG TABLET PO SCH (09:08)
[2016-11-12] MEDS: METHOCARBAMOL 750 MG TABLET PO SCH (09:09)
[2016-11-12] MEDS: CETIRIZINE HCL 10 MG TABLET PO SCH (09:09)
[2016-11-12 11:00] VITALS: BP 142/68
--- NOTE | 2016-11-12 12:04 | PDOC ---
PROGRESS NOTES Assessment Problems Medical Problems: (1) LUE weakness Status: Acute (2) Palpitations Status: Acute Stroke-like symptoms related to hypertension, suspect hypertensive encephalopathy Left arm pain, consider anginal equivalent, Cardiology consultation appreciated. I find no evidence of cervical radiculopathy. On warfarin for history of pulmonary emboli Plan Okay for discharge, will sign off Continue aspirin Follow-up with neurology as needed Subjective No complaints. Objective Vital Signs Date Time Temp Pulse Resp B/P Pulse Ox O2 Delivery O2 Flow Rate FiO2 11/12/16 11:00 97.9 67 18 142/68 100 Room Air 97.9 Intake and Output 11/12/16 07:00 Intake Total 1320 ml Balance 1320 ml Intake Oral 1320 ml # Voids 3 PHYSICAL EXAM Alert. Oriented to time, place and person. PERRL. EOMI. CN: no focal findings. Muscle tone: normal. Muscle strength: 5/5 DTR: 2+ Plantar reflex: flexor Gait: Not tested Sensory exam: no abnormal findings. No cerebellar signs elicited. Review of Relevant I have reviewed the following items ary (where applicable) has been applied. Labs Laboratory Tests Test 11/11/16 04:45 11/12/16 05:10 Prothrombin Time 21.5SEC (11.7-14.0) 23.2SEC (11.7-14.0) Prothromb Time International Ratio 2.0 (0.8-1.1) 2.2 (0.8-1.1) Laboratory Tests Test 11/12/16 05:10 Prothrombin Time 23.2SEC (11.7-14.0) Prothromb Time International Ratio 2.2 (0.8-1.1) Medications Current Medications Ondansetron HCl (Zofran) 4 mg PRN Q8HRS PRN IV NAUSEA/VOMITING; Start 11/08/16 at 18:45; Stop 11/08/16 at 19:16; Status DC Morphine Sulfate 2 mg PRN Q2HR PRN IV PAIN; Start 11/08/16 at 18:45; Stop 11/09 at 18:44; Status DC Acetaminophen (Tylenol) 650 mg PRN Q4HRS PRN PO FEVER; Start 11/08/16 at 18:45 ; Stop 11/08/16 at 19:16; Status DC Amlodipine Besylate (Norvasc) 10 mg DAILY PO Last administered on 11/12/16 09: 07; Start 11/09/16 at 09:00 Acetaminophen/ Hydrocodone Bitart (Lortab 5/325) 1 tab PRN Q6HRS PRN PO MODERATE - SEVERE PAIN Last administered on 11/11/16 21:57; Start 11/08/16 at 19:15 Methocarbamol (Robaxin) 750 mg BID PO Last administered on 11/12/16 09:09; Start 11/08/16 at 21:00 Cetirizine HCl (Zyrtec) 10 mg DAILY PO Last administered on 11/12/16 09:09; Start 11/09/16 at 09:00 Pantoprazole Sodium (Protonix) 40 mg DAILYAC PO Last administered on 11/12/16 08:19; Start 11/09/16 at 07:30 Hydralazine HCl (Apresoline) 10 mg PRN Q4HRS PRN IVP ELEVATED BP, SEE COMMENTS ; Start 11/08/16 at 19:15 Acetaminophen (Tylenol) 650 mg PRN Q6HRS PRN PO MILD PAIN / TEMP; Start at 19:15 Ondansetron HCl (Zofran) 4 mg PRN Q6HRS PRN IV NAUSEA/VOMITING; Start 11/08/16 at 19:15 Lisinopril (Prinivil) 20 mg DAILY PO Last administered on 11/11/16 09:11; Start 11/09/16 at 15:15; Stop 11/11/16 at 20:03; Status DC Warfarin Sodium (Coumadin) 2.5 mg SuTuSa PO Last administered on 11/11/16 16: 08; Start 11/09/16 at 16:00 Warfarin Sodium (Coumadin) 1 mg SuTuSa PO Last administered on 11/11/16 16:08 ; Start 11/09/16 at 16:00 Warfarin Sodium (Coumadin) 3 mg MoWeThFr PO Last administered on 11/10/16 18: 36; Start 11/10/16 at 16:00 Warfarin Sodium (Coumadin Per Physician) 1 each PRN DAILY PRN MC SEE COMMENTS Last administered on 11/12/16 11:01; Start 11/09/16 at 17:45 Zolpidem Tartrate (Ambien) 5 mg PRN QHS PRN PO INSOMNIA Last administered on 22:51; Start 11/09/16 at 21:00 Metoprolol Tartrate (Lopressor) 25 mg BID PO Last administered on 11/12/16 09: 08; Start 11/10/16 at 11:30 Methylprednisolone Sodium Succinate (Solu-Medrol 40mg Vial) 40 mg TID IV ; Start 11/10/16 at 14:00; Status Cancel Nicotine (Nicoderm Cq 14mg) 1 patch PRN DAILY PRN TD SMOKING CESSATION; Start 11/10/16 at 11:30; Stop 11/10/16 at 13:13; Status DC Regadenoson (Lexiscan) 0.4 mg 1X ONCE IV Last administered on 11/11/16 08:19 ; Start 11/11/16 at 08:15; Stop 11/11/16 at 08:16; Status DC Losartan Potassium (Cozaar) 25 mg DAILY PO Last administered on 11/12/16 09:08 ; Start 11/12/16 at 09:00 Active Scripts Active [place] 5-325 Tablet (Acetaminophen/Hydrocodone Bitart) 1 Each Tablet 1 Tab PO PRN Q6HRS PRN Reported Norvasc (Amlodipine Besylate) 10 Mg Tablet 10 Mg PO DAILY Methocarbamol 750 Mg Tablet 750 Mg PO BID Loratadine 10 Mg Tablet 10 Mg PO DAILY [metoprolol 50] 75 Mg PO BID Hydrocodone-Apap 5-325 (Hydrocodone Bit/Acetaminophen) 1 Each Tablet 1 Each PO PRN Q6HRS PRN Omeprazole 40 Mg Capsule.dr 40 Mg PO DAILY Vitals/I & O Vital Sign - Last 24 Hours 11/11/16 11/11/16 11/11/16 11/11/16 15:54 19:20 20:00 21:49 Temp 97.7 97.7 97.7 97.7 Pulse 71 71 71 Resp 16 18 B/P 150/70 122/62 122/62 Pulse Ox 100 100 O2 Delivery Room Air Room Air Room Air 11/11/16 11/11/16 11/11/16 11/12/16 21:57 22:57 23:05 03:20 Temp 97.8 97.9 97.8 97.9 Pulse 70 65 Resp 18 20 B/P 131/55 117/64 Pulse Ox 100 100 O2 Delivery Room Air Room Air Room Air Room Air 11/12/16 11/12/16 11/12/16 11/12/16 07:00 08:00 09:07 09:08 Temp 97.6 97.6 Pulse 69 69 69 Resp 18 B/P 122/61 122/61 122/61 Pulse Ox 99 O2 Delivery Room Air Room Air 11/12/16 11/12/16 09:08 11:00 Temp 97.9 97.9 Pulse 69 67 Resp 18 B/P 122/61 142/68 Pulse Ox 100 O2 Delivery Room Air Intake and Output 11/11/16 11/11/16 11/12/16 15:00 23:00 07:00 Intake Total 400 ml 920 ml Balance 400 ml 920 ml GARRET SCHMITT MD Nov 12, 2016 12:04
[2016-11-12] MEDS ORDERED: METO25TA4 PO (12:27)
[2016-11-12] MEDS ORDERED: AMLO10TA2 PO (12:27)
[2016-11-12] MEDS ORDERED: QUIN20TA7 PO (12:27)
--- NOTE | 2016-11-12 23:41 | DS ---
DATE OF DISCHARGE: 11/12/2016 DISCHARGE DIAGNOSES: 1. Left arm numbness, possible due to uncontrolled hypertension. 2. 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 3. Gastroesophageal reflux disease. 4. Hypertension, not controlled. BRIEF HOSPITAL COURSE: This 71-year-old female patient admitted to the hospital on 11/08/2016 for questionable left arm weakness. Given her significant history of uncontrolled hypertension, she was admitted to the hospital to rule out CVA. The patient went through imaging studies such as brain MRI and head CT, which were essentially normal and also she had a carotid Doppler, which was negative for any significant lesions. Also she had a nuclear medicine stress test, which was also negative. The patient's EF was more than 70%. She was evaluated by Cardiology. The patient's blood pressure medications have been adjusted. Today, her blood pressure has been stable as systolically less than 140. She deemed clinically stable enough to go home and follow up with primary care doctor. The patient has been advised to maintain home ____ and avoid foods that contain high salt. DISCHARGE EXAMINATION: GENERAL: Alert, oriented x 3. HEART: S1, S2 present. LUNGS: Anterior chest clear. ABDOMEN: Soft, nontender, no organomegaly. EXTREMITIES: No edema. DISCHARGE DISPOSITION: Home. DISCHARGE CONDITION: Stable. DISCHARGE MEDICATIONS: Reviewed and reconciled. Please see MRAD. FOLLOWUP: With primary care doctor in 2-4 weeks. Total time spent for discharge is 32 minutes for the patient education, counseling, and coordination of care. CASSANDRA LATHAM MD DR: DESTINY/nida JOB#: [id number] / [id number]
== END 2016-11-12 15:10 | disposition home or self-care (01) | DRG 305 ==
LOC: ER 15:17 → 6 SOUTH 18:15
PROVIDERS: ADMIT Internal Medicine; ATTEND Internal Medicine
DX: I10 Essential (primary) hypertension (principal); K21.9 Gastro-esophageal reflux disease without esophagitis; E78.5 Hyperlipidemia, unspecified; K59.00 Constipation, unspecified; M19.90 Unspecified osteoarthritis, unspecified site; Z86.711 Personal history of pulmonary embolism; Z82.49 Family history of ischemic heart disease and other diseases of the circulatory system; Z79.899 Other long term (current) drug therapy; Z88.1 Allergy status to other antibiotic agents; Z88.2 Allergy status to sulfonamides; Z88.8 Allergy status to other drugs, medicaments and biological substances
CPT/HCPCS: 36415; 70450; 70551; 71010; 78452; 80048; 80053; 80061; 81001; 84484; 85027; 85610; 93005; 93017; 93306; 93880; 96374; 96375; A9500; J0360; J2785; 97116; 97530; 97535; 99285-25

== ENCOUNTER 2018-11-24 15:03 | Emergency (ER) | payer MEDICARE ==
[~2018-11-24] VITALS: Ht 162.6 cm; Wt 95.3 kg
[~2018-11-24 15:03] MED LIST changes: +ACET-422 PO; -ACET1TAB46 PO; -AMLO10TA2 PO; +AMLO10TA8 PO; +AZIT250T PO; +HYDR-2145 PO; -HYDR-2666 PO; +HYDR-2761 PO; +HYDR-3164 PO; -HYDR-971 PO; -HYDR25TA9 PO; +MECL12.52 PO; +METO25TA4 PO; -POTA10TA10 PO; +POTA10TA12 PO; +QUIN20TA17 PO; -SUCR1ORA2 PO; +SUCR1ORA5 PO
[2018-11-24 15:24] VITALS: BP 183/69
[2018-11-24] MEDS ORDERED: ONDANSETRON ODT 4 MG TAB.RAPDIS. PO ONE (15:30)
--- NOTE | 2018-11-24 15:30 | PHYS DOC ---
Past Medical History Past Medical History: Arthritis, DVT, GERD, Hypertension Additional Past Medical Histor: seasonal allergies, pulmonary embolism Past Surgical History: Cholecystectomy, , Tubal ligation Alcohol Use: None Drug Use: None Adult General Chief Complaint Chief Complaint: LOWER EXT PAIN HPI HPI Patient is a 73 year old female who presents with left ear began having right behind the knee pain is sharp it is not radiating. Patient has a history of a left blood clot in her leg and she is currently on Coumadin. Review of Systems Review of Systems Constitutional: Denies fever or chills [] Eyes: Denies change in visual acuity, redness, or eye pain [] HENT: Denies nasal congestion or sore throat [] Respiratory: Denies cough or shortness of breath [] Cardiovascular: No additional information not addressed in HPI [] GI: Denies abdominal pain, nausea, vomiting, bloody stools or diarrhea [] : Denies dysuria or hematuria [] Musculoskeletal: anterior right knee pain. Denies back pain or joint pain [] Integument: Denies rash or skin lesions [] Neurologic: Denies headache, focal weakness or sensory changes [] All other systems were reviewed and found to be within normal limits, except as documented in this note. Current Medications Current Medications Current Medications Medications (Trade) Dose Ordered Sig/Dionicio Start Time Stop Time Status Last Admin Dose Admin Ondansetron HCl (Zofran Odt) 4 mg 1X ONCE 11/24/18 15:30 11/24/18 15:31 DC 11/24/18 15:30 4 MG Allergies Allergies Allergies Coded Allergies Type Severity Reaction Last Updated Verified Sulfa (Sulfonamide Antibiotics) Allergy Intermediate Rash 07/08/14 Yes cephalexin Adverse Reaction Intermediate Nausea and Vomiting 07/08/14 Yes metoclopramide Adverse Reaction Intermediate Anxiety, pt reports that it makes her restless 07/08/14 Yes promethazine Adverse Reaction Intermediate Anxiety, pt reports that phenergan cause numbness 07/08/14 Yes Physical Exam Physical Exam Constitutional: Well developed, well nourished, no acute distress, non-toxic appearance. [] HENT: Normocephalic, atraumatic, bilateral external ears normal, oropharynx moist, no oral exudates, nose normal. [] Eyes: PERRLA, EOMI, conjunctiva normal, no discharge. [] Neck: Normal range of motion, no tenderness, supple, no stridor. [] Cardiovascular:Heart rate regular rhythm, no murmur [] Lungs & Thorax: Bilateral breath sounds clear to auscultation [] Abdomen: Bowel sounds normal, soft, no tenderness, no masses, no pulsatile masses. [] Skin: Warm, dry, no erythema, no rash. [] Back: No tenderness, no CVA tenderness. [] Extremities: Anterior right knee down to mid calf tenderness, no cyanosis, no clubbing, ROM intact, no edema. [] Neurologic: Alert and oriented X 3, normal motor function, normal sensory function, no focal deficits noted. [] Psychologic: Affect normal, judgement normal, mood normal. [] Current Patient Data Vital Signs Vital Signs Date Time Temp Pulse Resp B/P (MAP) Pulse Ox O2 Delivery O2 Flow Rate FiO2 11/24/18 15:24 98.2 84 16 183/69 (107) 100 Room Air 98.2 EKG EKG [] Radiology/Procedures Radiology/Procedures [] Impressions: [facility] [address] [place] [address] IMAGING REPORT Signed PATIENT: BALDEMAR LANE ACCOUNT: [id number] : 1945 LOCATION: ER AGE: 73 SEX: F EXAM STATUS: REG ER ORD. PHYSICIAN: CEDRIC MALIK APRN REASON: tenderness behind right knee down to mid calf. hx left dvt PROCEDURE: VENOUS LOWER EXTREMITY RIGHT EXAM: Right lower extremity venous Doppler sonogram. HISTORY: Pain and swelling. TECHNIQUE: Higginbotham scale and color Doppler sonographic evaluation of the right lower extremity veins with spectral waveform analysis was performed. FINDINGS: There is normal color flow, normal compressibility and there are normal spectral waveforms in the common femoral, superficial femoral, popliteal, posterior tibial and greater saphenous veins. IMPRESSION: No Doppler evidence of lower extremity deep venous thrombosis. Electronically signed by: Raquel Lawson MD (11/24/2018 4:26 PM) [facility] DICTATED and SIGNED BY: RAQUEL LAWSON MD DATE: 11/24/18 1626 Course & Med Decision Making Course & Med Decision Making Patient is a 73 year old female who presents with left ear began having right behind the knee pain is sharp it is not radiating. Patient has a history of a left blood clot in her leg and she is currently on Coumadin. Patient denies knee or leg injury, chest pain, shortness of breath, abdominal pain, vomiting, swelling in her extremities, dizziness, palpitations. Homans sign negative. Swelling in right and left lower leg are equal and nonpitting in at 1-2+. Strong pedal pulse bilaterally. Tenderness to palpation behind the right knee and approximately usp down the calf. There is no redness or swelling or heat in the skin, there is no coolness or ski color changes to the leg. Patient denies numbness or tingling or coolness to the leg. Alert and oriented. Speaks in full clear sentences. Lungs are clear to auscultation all lobes. PERRLA. Neurologically intact. Ambulatory with steady gait. Patient states she is slightly nauseated. US of the extremity shows No Doppler evidence of lower extremity deep venous thrombosis. Dragon Disclaimer Dragon Disclaimer This electronic medical record was generated, in whole or in part, using a voice recognition dictation system. Departure Departure Impression: Primary Impression: Right leg pain Disposition: HOME, SELF-CARE Condition: STABLE Referrals: CASSIE ZARATE DO (PCP) Patient Instructions: Knee Pain Additional Instructions: Follow-up with primary care provider. Take all your medications as prescribed. Scripts Hydrocodone/Apap 5-325 (NORCO 5-325 TABLET) 1 Each Tablet 1 TAB PO PRN Q6HRS PRN for PAIN, #6 TAB 0 Refills Prov: CEDRIC MALIK APRN 11/24/18 CEDRIC MALIK APRN Nov 24, 2018 15:30
--- NOTE | 2018-11-24 16:29 | RAD ---
EXAM: Right lower extremity venous Doppler sonogram. HISTORY: Pain and swelling. TECHNIQUE: Higginbotham scale and color Doppler sonographic evaluation of the right lower extremity veins with spectral waveform analysis was performed. FINDINGS: There is normal color flow, normal compressibility and there are normal spectral waveforms in the common femoral, superficial femoral, popliteal, posterior tibial and greater saphenous veins. IMPRESSION: No Doppler evidence of lower extremity deep venous thrombosis. Electronically signed by: Raquel Macedo MD (11/24/2018 4:26 PM) [place] [id number]
[2018-11-24] MEDS ORDERED: HYDR-3164 PO (16:44)
== END 2018-11-24 17:01 | disposition home or self-care (01) ==
LOC: ER 15:03
DX: M25.561 Pain in right knee (principal); M79.661 Pain in right lower leg; I10 Essential (primary) hypertension; K21.9 Gastro-esophageal reflux disease without esophagitis; Z86.718 Personal history of other venous thrombosis and embolism; Z79.01 Long term (current) use of anticoagulants; Z86.711 Personal history of pulmonary embolism; M19.90 Unspecified osteoarthritis, unspecified site; Z90.49 Acquired absence of other specified parts of digestive tract; Z98.51 Tubal ligation status; Z88.1 Allergy status to other antibiotic agents; Z88.2 Allergy status to sulfonamides; Z88.8 Allergy status to other drugs, medicaments and biological substances
CPT/HCPCS: 93971; 99284; Q0162

== ENCOUNTER 2020-07-13 09:08 | Emergency (ER) | payer MEDICARE ==
[~2020-07-13] VITALS: Ht 160 cm; Wt 95.0 kg
[~2020-07-13 09:08] MED LIST changes: +AMLO-187 PO; -AMLO10TA8 PO; -MECL12.52 PO; +MECL12.573 PO; +OMEP40CA45 PO; -OMEP40CA5 PO; -POTA10TA12 PO; +POTASSIUM CHLO10 ME1 PO
[2020-07-13 10:33] LABS: BASO % 1 % (0-3); EOS # 0.1 x10^3/uL (0.0-0.7); EOS % 1 % (0-3); HEMOGLOBIN 11.3 g/dL (12.0-15.5); LYMPH # 1.7 x10^3/uL (1.0-4.8); LYMPH % 21 % (24-48); MEAN CORPUSCULAR HEMOGLOBIN 27 pg (25-35); MEAN CORPUSCULAR HGB CONC 32 g/dL (31-37); MEAN CORPUSCULAR VOLUME 84 fL (79-100); MONO # 0.4 x10^3/uL (0.0-1.1); MONO % 6 % (0-9); NEUT # 5.6 x10^3/uL (1.8-7.7); NEUT % 72 % (31-73); PLATELET COUNT 221 x10^3/uL (140-400); RED BLOOD COUNT 4.16 x10^6/uL (3.50-5.40); RED CELL DISTRIBUTION WIDTH 14.1 % (11.5-14.5); WHITE BLOOD COUNT 7.9 x10^3/uL (4.0-11.0)
[2020-07-13 10:42] LABS: PROTHROMBIN TIME PATIENT 22.9 SEC (11.7-14.0)
[2020-07-13 10:45] LABS: CALCIUM 9.1 mg/dL (8.5-10.1); CREATININE 0.9 mg/dL (0.6-1.0); GFR 74.5; POTASSIUM 3.8 mmol/L (3.5-5.1)
[2020-07-13 10:51] LABS: ALBUMIN 3.5 g/dL (3.4-5.0); ALBUMIN/GLOBULIN RATIO 0.9 (1.0-1.7); MAGNESIUM 2.1 mg/dL (1.8-2.4); TOTAL BILIRUBIN 0.6 mg/dL (0.2-1.0); TOTAL PROTEIN 7.2 g/dL (6.4-8.2)
[2020-07-13 11:11] LABS: BILIRUBIN,URINE NEGATIVE (NEG); CLARITY,URINE CLEAR; COLOR,URINE YELLOW; NITRITE,URINE NEGATIVE (NEG); PH,URINE 6.5 (<5.0-8.0); PROTEIN,URINE NEGATIVE (NEG-TRACE); UROBILINOGEN,URINE 0.2 mg/dL (0.2 mg/dL)
[2020-07-13 11:12] LABS: HYALINE CASTS, URINE FEW /HPF
[2020-07-13 11:13] LABS: BACTERIA,URINE FEW /HPF (0-FEW); RBC,URINE OCC /HPF (0-2); WBC,URINE OCC /HPF (0-4)
--- NOTE | 2020-07-13 12:47 | RAD ---
CT HEAD INDICATION: on coumadin, elevated blood pressure, hand, fingers numbness / Spl. Instructions: / History: COMPARISON: 04/08/2018 Exposure: One or more of the following individualized dose reduction techniques were utilized for this examination: 1. Automated exposure control 2. Adjustment of the mA and/or kV according to patient size 3. Use of iterative reconstruction technique TECHNIQUE: 5 mm contiguous axial images were obtained from the skull base to the vertex in both bone and soft tissue algorithm. FINDINGS: No abnormal attenuation within the brain parenchyma. No evidence of acute intracranial hemorrhage. No extra-axial fluid collections. No mass effect or midline shift. Ventricular size is appropriate. Basal cisterns are patent. No fractures identified.Higginbotham-white differentiation is preserved.Globes and orbits are within normal limits. Paranasal sinuses and mastoid air cells are clear. IMPRESSION: No acute intracranial findings. Electronically signed by: Tenzin Berman MD (07/13/2020 12:45 PM) [id number]
--- NOTE | 2020-07-13 13:14 | PHYS DOC ---
Past Medical History Past Medical History: Arthritis, DVT, GERD, Hypertension Additional Past Medical Histor: seasonal allergies, pulmonary embolism Past Surgical History: Cholecystectomy, , Tubal ligation Smoking Status: Never Smoker Alcohol Use: None Drug Use: None General Adult EDM: Chief Complaint: HYPERTENSION HPI: HPI: Patient is a 74-year-old female who presented to ER for evaluation of heart palpitation this morning but resolved after she took her metoprolol. Patient denies any chest pain or any trouble breathing. Her blood pressure was elevated this morning. Patient has history of blood clot disorder, she is on Coumadin. CT scan of her head did not show any acute problem. Patient also stated for the last month she woke up in the morning with pain and burning sensation in her left hand and fingers. Patient denies any symptoms at this time. Patient denies any injury. Patient denies any chest pain or any trouble breathing. Patient denies any headache or any slurred speech. Patient has history of hypertension, she took her morning medications this morning. Review of Systems: Review of Systems: Constitutional: Denies fever or chills. [] Eyes: Denies change in visual acuity. [] HENT: Denies nasal congestion or sore throat. [] Respiratory: Denies cough or shortness of breath. [] Cardiovascular: Denies chest pain or edema. Positive for heart palpitation. GI: Denies abdominal pain, nausea, vomiting, bloody stools or diarrhea. [] : Denies dysuria. [] Musculoskeletal: Denies back pain or joint pain. Positive for burning pain in her left hand, fingers. Integument: Denies rash. [] Neurologic: Denies headache, focal weakness or sensory changes. [] Endocrine: Denies polyuria or polydipsia. [] Lymphatic: Denies swollen glands. [] Psychiatric: Denies depression or anxiety. [] Heart Score: Risk Factors: Risk Factors: DM, Current or recent (<one month) smoker, HTN, HLP, family history of CAD, obesity. Risk Scores: Score 0 - 3: 2.5% MACE over next 6 weeks - Discharge Home Score 4 - 6: 20.3% MACE over next 6 weeks - Admit for Clinical Observation Score 7 - 10: 72.7% MACE over next 6 weeks - Early Invasive Strategies Allergies: Allergies: Allergies Coded Allergies Type Severity Reaction Last Updated Verified Sulfa (Sulfonamide Antibiotics) Allergy Intermediate Rash 07/08/14 Yes cephalexin Adverse Reaction Intermediate Nausea and Vomiting 07/08/14 Yes metoclopramide Adverse Reaction Intermediate Anxiety, pt reports that it makes her restless 07/08/14 Yes promethazine Adverse Reaction Intermediate Anxiety, pt reports that phenergan cause numbness 07/08/14 Yes Physical Exam: PE: Constitutional: Well developed, well nourished, no acute distress, non-toxic appearance. [] HENT: Normocephalic, atraumatic, bilateral external ears normal, oropharynx moist, no oral exudates, nose normal. [] Eyes: PERRLA, EOMI, conjunctiva normal, no discharge. [] Neck: Normal range of motion, no tenderness, supple, no stridor. [] Cardiovascular:Heart rate regular rhythm, no murmur [] Lungs & Thorax: Bilateral breath sounds clear to auscultation [] Abdomen: Bowel sounds normal, soft, no tenderness, no masses, no pulsatile masses. [] Skin: Warm, dry, no erythema, no rash. [] Back: No tenderness, no CVA tenderness. [] Extremities: No tenderness, no cyanosis, no clubbing, ROM intact, no edema. [] Neurologic: Alert and oriented X 3, normal motor function, normal sensory function, no focal deficits noted. [] Psychologic: Affect normal, judgement normal, mood normal. [] Current Patient Data: Labs: Laboratory Tests Test 07/13/20 10:23 07/13/20 10:50 White Blood Count 7.9 x10^3/uL (4.0-11.0) Red Blood Count 4.16 x10^6/uL (3.50-5.40) Hemoglobin 11.3 g/dL (12.0-15.5) L Hematocrit 35.0 % (36.0-47.0) L Mean Corpuscular Volume 84 fL (79-100) Mean Corpuscular Hemoglobin 27 pg (25-35) Mean Corpuscular Hemoglobin Concent 32 g/dL (31-37) Red Cell Distribution Width 14.1 % (11.5-14.5) Platelet Count 221 x10^3/uL (140-400) Neutrophils (%) (Auto) 72 % (31-73) Lymphocytes (%) (Auto) 21 % (24-48) L Monocytes (%) (Auto) 6 % (0-9) Eosinophils (%) (Auto) 1 % (0-3) Basophils (%) (Auto) 1 % (0-3) Neutrophils # (Auto) 5.6 x10^3/uL (1.8-7.7) Lymphocytes # (Auto) 1.7 x10^3/uL (1.0-4.8) Monocytes # (Auto) 0.4 x10^3/uL (0.0-1.1) Eosinophils # (Auto) 0.1 x10^3/uL (0.0-0.7) Basophils # (Auto) 0.0 x10^3/uL (0.0-0.2) Prothrombin Time 22.9 SEC (11.7-14.0) H Prothrombin Time INR 2.1 (0.8-1.1) H Sodium Level 139 mmol/L (136-145) Potassium Level 3.8 mmol/L (3.5-5.1) Chloride Level 105 mmol/L (98-107) Carbon Dioxide Level 25 mmol/L (21-32) Anion Gap 9 (6-14) Blood Urea Nitrogen 14 mg/dL (7-20) Creatinine 0.9 mg/dL (0.6-1.0) Estimated GFR (Cockcroft-Gault) 74.5 BUN/Creatinine Ratio 16 (6-20) Glucose Level 94 mg/dL (70-99) Calcium Level 9.1 mg/dL (8.5-10.1) Magnesium Level 2.1 mg/dL (1.8-2.4) Total Bilirubin 0.6 mg/dL (0.2-1.0) Aspartate Amino Transferase (AST) 17 U/L (15-37) Alanine Aminotransferase (ALT) 17 U/L (14-59) Alkaline Phosphatase 92 U/L (46-116) Troponin I Quantitative < 0.017 ng/mL (0.000-0.055) Total Protein 7.2 g/dL (6.4-8.2) Albumin 3.5 g/dL (3.4-5.0) Albumin/Globulin Ratio 0.9 (1.0-1.7) L Urine Collection Type Unknown Urine Color Yellow Urine Clarity Clear Urine pH 6.5 (<5.0-8.0) Urine Specific [place] 1.010 (1.000-1.030) Urine Protein Negative mg/dL (NEG-TRACE) Urine Glucose (UA) Negative mg/dL (NEG) Urine Ketones (Stick) Negative mg/dL (NEG) Urine Blood Negative (NEG) Urine Nitrite Negative (NEG) Urine Bilirubin Negative (NEG) Urine Urobilinogen Dipstick 0.2 mg/dL (0.2 mg/dL) Urine Leukocyte Esterase Negative (NEG) Urine RBC Occ /HPF (0-2) Urine WBC Occ /HPF (0-4) Urine Squamous Epithelial Cells Few /LPF Urine Bacteria Few /HPF (0-FEW) Urine Hyaline Casts Few /HPF Urine Mucus Slight /LPF Laboratory Tests 07/13/20 10:23 Laboratory Tests 07/13/20 10:23 Vital Signs: Vital Signs Date Time Temp Pulse Resp B/P (MAP) Pulse Ox O2 Delivery O2 Flow Rate FiO2 07/13/20 09:21 98.0 67 16 175/83 (113) 100 Room Air 98.0 EKG: EKG: [] Radiology/Procedures: Radiology/Procedures: [][facility] [address] [place] [address] IMAGING REPORT Signed PATIENT: RAMAN LANECCOUNT: [id number] : 1945 LOCATION: ER AGE: 74 SEX: F EXAM STATUS: PRE ER ORD. PHYSICIAN: VIVIANA YBARRA DO REASON: on coumadin, elevated blood pressure, hand, fingers numbness PROCEDURE: CT HEAD WO CONTRAST CT HEAD INDICATION: on coumadin, elevated blood pressure, hand, fingers numbness / Spl. Instructions: / History: COMPARISON: 04/08/2018 Exposure: One or more of the following individualized dose reduction techniques were utilized for this examination: 1. Automated exposure control 2. Adjustment of the mA and/or kV according to patient size 3. Use of iterative reconstruction technique TECHNIQUE: 5 mm contiguous axial images were obtained from the skull base to the vertex in both bone and soft tissue algorithm. FINDINGS: No abnormal attenuation within the brain parenchyma. No evidence of acute intracranial hemorrhage. No extra-axial fluid collections. No mass effect or midline shift. Ventricular size is appropriate. Basal cisterns are patent. No fractures identified.Higginbotham-white differentiation is preserved.Globes and orbits are within normal limits. Paranasal sinuses and mastoid air cells are clear. IMPRESSION: No acute intracranial findings. Electronically signed by: Tenzin Berman MD (07/13/2020 12:45 PM) [id number] DICTATED and SIGNED BY: TENZIN BERMAN MD DATE: 07/13/20 1245 Course & Med Decision Making: Course & Med Decision Making Pertinent Labs and Imaging studies reviewed. (See chart for details) Patient is a 74-year-old female who presented to ER for evaluation of heart palpitation this morning but resolved after she took her metoprolol. Patient denies any chest pain or any trouble breathing. Her blood pressure was elevated this morning. Patient has history of blood clot disorder, she is on Coumadin. CT scan of her head did not show any acute problem. Patient also stated for the last month she woke up in the morning with pain and burning sensation in her left hand and fingers. Patient denies any symptoms at this time. Patient denies any injury. It is suspected that patient might have cervical radiculopathy or carpal tunnel syndrome. Patient will be discharged home, she was recommended to follow her family physician for outpatient evaluation with MRI of her cervical spine for to be evaluated by neurology or hand surgeon about her radiculopathy. Patient is amenable to plan of care. Dragon Disclaimer: Dragon Disclaimer: This electronic medical record was generated, in whole or in part, using a voice recognition dictation system. Departure Departure Impression: Primary Impression: Radiculopathy Additional Impression: Hypertension Disposition: 01 DC HOME SELF CARE/HOMELESS Condition: STABLE Referrals: CASSIE ZARATE DO (PCP) please follow up with your doctor on Thursday for reevaluation and outpatient r eferral to Hand physician. Patient Instructions: Cervical Radiculopathy, Hypertension Additional Instructions: Thank you for visiting our Emergency Department. We appreciate you trusting us with your care. If any additional problems come up don't hesitate to return to visit us. Please follow up with your primary care provider so they can plan additional care if needed and know about the problem that you had. If symptoms worsen come back to the Emergency Department. Any concerning symptoms that start such as chest pain, shortness of air, weakness or numbness on one side of the body, running high fevers or any other concerning symptoms return to the ER. VIVIANA YBARRA DO Jul 13, 2020 13:14
[2020-07-13 13:19] VITALS: BP 158/72
--- NOTE | 2020-07-15 14:03 | EKG ---
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
== END 2020-07-13 13:55 | disposition home or self-care (01) ==
LOC: ER 09:08
DX: M54.12 Radiculopathy, cervical region (principal); I10 Essential (primary) hypertension; K21.9 Gastro-esophageal reflux disease without esophagitis; Z86.718 Personal history of other venous thrombosis and embolism; Z79.01 Long term (current) use of anticoagulants; Z88.1 Allergy status to other antibiotic agents; Z88.2 Allergy status to sulfonamides; Z88.8 Allergy status to other drugs, medicaments and biological substances
CPT/HCPCS: 36415; 70450; 80053; 81001; 83735; 84484; 85025; 85610; 93005; 99285